=== PATIENT | female | born 1985 | race African-American/Black ===

== ENCOUNTER → 2016-04-02 | Outpatient (CLI) | payer BC ==
[~2016-04-02] MED LIST: ALEVE220 MG; APRI1 EACH PO; BACLOFEN20 MG PO; BUSPAR 5 MG TABL5 M1 PO; CARISOPRODOL 3350 MG PO; CYCLOBENZAPRINE10 MG PO; DEXTROAMP-AMPHE30 MG PO; FLEXERIL PO; HYDROCODON-ACE1 EACH PO; HYDROCODONE-AP1 EAC6 PO; NABUMETONE 500500 M1 PO; PRISTIQ100 MG PO; REMERON15 MG PO; ROBAXIN 750 MG750 M1 PO; SONATA5 M1 PO; TIZANIDINE HCL4 M1 PO; VYVANSE60 MG PO; XANAX XR1 MG PO
== END ==
LOC: MRI 02:08
DX: M54.12 Radiculopathy, cervical region (principal); M54.2 Cervicalgia

== ENCOUNTER → 2016-04-09 | Outpatient (CLI) | payer BC ==
[~2016-04-09] VITALS: Ht 160 cm; Wt 53.1 kg
--- NOTE | ~2016-04-09 | HPC ---
[facility] [place] [address] PAIN MANAGEMENT CONSULTATION Name: BIANCA PIERSON Room [facility]: [facility] [id number] Admission: 04/09/16 Attend Phys: Bud Cline DO Discharge: Date of : 81 Report #: [id number] THIS REPORT FOR: //name// CC: Bud HARTMAN DATE OF SERVICE: 04/09/2016 REFERRING PHYSICIAN: DEVAN Hadley. CHIEF COMPLAINT: Neck pain, upper back pain, bilateral upper extremity pain. HISTORY OF PRESENT ILLNESS: As you know, the patient is a 30-year-old female returning in followup visit today stating a pain score of 2/10. States her pain is aching, dull, radiating in sensation, exacerbated with moving her head, working at her computer at work, improves with medications and TENS units. She has returned today in followup visit for medication management and to review MRI of cervical spine. She denies no new injury, no new trauma that may have lead to progression of pain. ALLERGIES: No known drug allergies. CURRENT MEDICATIONS: Hydrocodone/acetaminophen 5/325 one tab every 8 hours p.r.n. for pain, carisoprodol 350 mg 3 times a day, dextroamphetamine/amphetamine 30 mg dose once a day, nabumetone 500 mg once a day, duloxetine 60 mg per day. SOCIAL HISTORY: The patient denies tobacco, IV or illicit drug use. Admits to one alcoholic beverage per week. She is employed, working, not receiving workmen's compensation, unaccompanied today. IMAGING: MRI of cervical spine obtained on 04/02/2016 shows essentially unremarkable MRI of the cervical spine except for mild posterior disk bulging at C5-C6, C6-C7. No significant central canal neural foraminal stenosis. PHYSICAL EXAMINATION: VITAL SIGNS: Blood pressure 138/85, pulse is 112, respiratory rate 14, unlabored. The patient is 100% on room air. Height 5 feet 3 inches tall, weight 117 pounds, BMI calculated 20.7. GENERAL: Well-developed, well-nourished, well-hydrated 30-year-old female appearing her stated age. Pain is rated around 2/10. HEENT: Normocephalic, atraumatic. Pupils equal, round, reactive to light. EXTREMITIES: Show no clubbing, no cyanosis, no edema. MUSCULOSKELETAL: Upper extremity strength equal and symmetrical 5/5, intact to light touch from C5-T1 dermatomes. Spurling's test is negative. [facility] [address] [address] PAIN MANAGEMENT CONSULTATION Name: BIANCA PIERSON Room #: REG [facility]#: [id number] Admission: 04/09/16 Attend Phys: Bud Cline DO Discharge: Date of : 81 Report #: [id number] test is mildly positive. There is restriction of motion of the cervical spine with rotation and lateral flexion and extension. ASSESSMENT: 1. Chronic neck pain. 2. Cervicalgia. 3. Myofascial pain. 4. Chronic intractable pain. PLAN: 1. The patient returns today in followup visit where we have taken 20 minutes of time to review the MRI of cervical spine and please do indicate to the patient today there is no major pathology that will require surgical options. She has minor changes at C5-C6, C6-C7, which I believe is contributing mildly to the patient's pain. The symptoms the patient is experiencing appears to be myofascial in origin. I believe this is due to the positioning of her work station and the position she has to remain in during her daily work activities. She has near complete resolution of pain when she is not at the work site and has had a weekend off or a vacation. This would indicate that positioning at work is the source of the patient's exacerbating symptoms. We have discussed with the patient options for treatment. From a medication standpoint, she wishes to continue therapy at our current dosing, but wishes to change the Soma back to cyclobenzaprine as she does find that the cyclobenzaprine was a better muscle relaxant for her. I have also discussed with the patient our desire to have the patient have ergonomic jewelry designer to look at her work space and adjust her devices appropriately. She indicates she is working with her human relations manager to do this at her current job. 2. The patient will discontinue Soma in place will be using cyclobenzaprine. She was given 10 mg dose 1 tab p.o. t.i.d., #90, 2 refills. The patient was advised to utilize the medication only when pain is due to muscle spasming, not to rely on the medication prophylactically. 3. The patient was provided a prescription of nabumetone 500 mg dose 1 tab p.o. t.i.d., #90, 2 refills. She is to take this medication with meals to decrease dyspepsia. 4. The patient will be continued on hydrocodone/acetaminophen 5/325 one tab p.o. q. 8 hours p.r.n. for pain. She was given #90 releases of today, 4 weeks from today, 8 weeks from today. Advised to take the medication when pain is intolerable, not to rely on the medication prophylactically. 5. We will see the patient back in followup visit in 3 months or earlier if changes need to be made and medication management. <ELECTRONICALLY SIGNED> By: Bud Cline DO 04/22/16 0805 0840 2320 Bud Cline DO /nt
[2016-04-09 13:48] VITALS: BP 138/85
== END | disposition home or self-care (01) ==
LOC: PAIN 04-03 07:07
DX: M54.2 Cervicalgia (principal); M79.1 Myalgia; G89.29 Other chronic pain; Z87.891 Personal history of nicotine dependence

== ENCOUNTER → 2016-07-23 | Outpatient (CLI) | payer BC ==
[~2016-07-23] VITALS: Ht 160 cm; Wt 58.9 kg
--- NOTE | ~2016-07-23 | HPC ---
[facility] [place] [address] PAIN MANAGEMENT CONSULTATION Name: BIANCA PIERSON Room #: REG [facility] M.R.#: [id number] Admission: 07/23/16 Attend Phys: Bud Cline DO Discharge: Date of : 81 Report #: [id number] THIS REPORT FOR: //name// CC: Bud HARTMAN DATE OF SERVICE: 07/23/2016 REFERRING PHYSICIAN: DEVAN Hadley CHIEF COMPLAINT: Neck pain, upper back pain, bilateral upper extremity pain. HISTORY OF PRESENT ILLNESS: As you know, the patient is a very pleasant 30-year-old female who returns today in followup visit for medication management. The patient indicates when pain is present; it involves her head, neck, shoulders and upper back. It is chronic in nature, aching, dull, radiating in sensation, exacerbated with movement of the cervical spine, working on computer monitors and medications, TENS units, rest and relaxation appears to improve pain. She returns today in followup visit reporting today pain score of 0/10. Apparently, she has been working in a different facility of late. Her symptoms have improved. Plan is to return to her normal work space starting today. She has returned requesting refill on medications, denying any side effects with their use. ALLERGIES: No known drug allergies. CURRENT MEDICATIONS: Hydrocodone/acetaminophen 5/325 one tab p.o. q. 8 hours p.r.n. for pain, Flexeril 10 mg 3 times a day, dextroamphetamine/amphetamine ER 30 mg once a day, Vyvanse 60 mg once a day. SOCIAL HISTORY: The patient denies tobacco, IV or illicit drug use. Admits to one alcoholic beverage per week. She is employed. She is working, not receiving workmen's compensation. She is unaccompanied today. IMAGING: No new imaging available. PHYSICAL EXAMINATION: VITAL SIGNS: Blood pressure 141/93, pulse 119, respiratory rate 14, unlabored. The patient is 98% on room air, height 5 feet 3 inches tall, weight 129.8 pounds, BMI calculated 23. GENERAL: Well-developed, well-nourished, well-hydrated 30-year-old female appearing stated age. Pain is rated at 0/10. HEENT: Normocephalic, atraumatic. Pupils equal, round, reactive to light. EXTREMITIES: Show no clubbing, no cyanosis, no edema. MUSCULOSKELETAL: There is palpatory tenderness over the paraspinal musculature [facility] [address] [place] [address] PAIN MANAGEMENT CONSULTATION Name: BIANCA PIERSON Room #: REG [facility]#: [id number] Admission: 07/23/16 Attend Phys: Bud Cline DO Discharge: Date of : 81 Report #: [id number] cervical spine, no spinous process tenderness. Spurling's test is negative. Distraction test is mildly positive. There is no restriction of motion in the cervical region today including rotation, lateral flexion and extension. ASSESSMENT: 1. Chronic neck pain. 2. Cervicalgia. 3. Myofascial pain. 4. Mild cervical facet arthropathy. 5. Chronic intractable pain. PLAN: 1. The patient has returned today in followup visit for medication management. The patient indicates medications are working beneficially. She does not have any side effects to the medications such as somnolence, decrease in mental acuity, disorientation or confusion. At present, the patient's pain level is 0/10. Apparently, she has been working at a different facility and the positioning of the computer screens and workspace is such that she has had near complete resolution of symptoms. She does return today requesting refills on medication as she is going to be returning to her previous work environment and she is concerned, the pain will begin again with positioning. We are hopeful that her work organization has made changes to her work space, but have agreed to provide medications for pain control at this time. I would recommend the patient utilize the lowest most effective dose for treatment. 2. The patient was provided a prescription of hydrocodone 5/325 one tab every 8 hours p.r.n. for pain, #90 releases of today, 4 weeks from today, 8 weeks from today, 3 months' worth of medication. 3. The patient was provided a prescription of cyclobenzaprine 10 mg dose 1 tab p.o. t.i.d., #90, releases of today, 4 weeks from today, 8 weeks from today. 4. The patient to return to our clinic on an as needed basis for possible interventional treatments and medication management changes. By: [id number] Bud Cline DO /nt
[2016-07-23 12:43] VITALS: BP 141/93
== END ==
LOC: PAIN 06:45
DX: G89.29 Other chronic pain (principal); M12.88 Other specific arthropathies, not elsewhere classified, other specified site

== ENCOUNTER → 2016-10-22 | Outpatient (CLI) | payer BC ==
[~2016-10-22] VITALS: Ht 160 cm; Wt 62.1 kg
[~2016-10-22] MED LIST changes: +ZOLOFT50 MG PO
--- NOTE | ~2016-10-22 | HPC ---
[facility] [address] [place] [address] PAIN MANAGEMENT CONSULTATION Name: KENNABIANCA Up [facility] [id number] Admission: 10/22/16 Attend Phys: Bud Cline DO Discharge: Date of : 81 Report #: [id number] THIS REPORT FOR: //name// CC: Bud HARTMAN DATE OF SERVICE: 10/22/2016 REFERRING PHYSICIAN: DEVAN Hadley. CHIEF COMPLAINT: Neck pain, upper back pain and bilateral upper extremity pain. HISTORY OF PRESENT ILLNESS: As you know, the patient is a very pleasant 30-year-old female who returns today in followup visit stating that her pain is now a level 4/10. States her pain is beginning in the neck, radiating towards the head, into the shoulders and down the arms. Indicates pain is chronic in nature, irritating, radiating, numbness and tingling when describing pain. She indicates that moving her head, monitoring her computer monitors tend to exacerbate symptoms. TENS units, medications and previous cervical epidural injections have assisted in pain control. She returns today in followup visit requesting to undergo a cervical epidural injection under fluoroscopic guidance and to receive refill of medications at her current dosing. She is denying side effects to medication at this time and does find benefit with their use. ALLERGIES: No known drug allergies. CURRENT MEDICATIONS: Hydrocodone/acetaminophen 5/325 one tab p.o. q. 8 hours p.r.n. for pain, Flexeril 10 mg 3 times a day, dextroamphetamine/amphetamine ER 30 mg once a day and Vyvanse 60 mg per day. SOCIAL HISTORY: The patient denies tobacco, IV or illicit drug use. Admits to one alcoholic beverage per week. She is employed. She is working, not receiving workmen's compensation, unaccompanied today. IMAGING: No new imaging available. PHYSICAL EXAMINATION: VITAL SIGNS: Blood pressure 128/91, pulse 92, respiratory rate 14, unlabored. The patient is 100% on room air, height 5 feet 3 inches tall, weight 136.8 pounds, BMI calculated at 24.2. GENERAL: Well-developed, well-nourished and well hydrated 30-year-old female appearing her stated age, placing pain score today at 4/10. HEENT: Normocephalic, atraumatic. Pupils equal, round and reactive to light. Extraocular muscles are intact. Sclerae nonicteric, without injection. EXTREMITIES: Show no clubbing, no cyanosis, [place] [address] PAIN MANAGEMENT CONSULTATION Name: BIANCA PIERSON Room #: REG [facility]#: [id number] Admission: 10/22/16 Attend Phys: Bud Cline DO Discharge: Date of : 81 Report #: [id number] MUSCULOSKELETAL: There is palpatory tenderness over the paraspinal musculature of cervical spine. No spinous process tenderness. Upper extremity strength appears equal and symmetrical 5/5. Muscle bulk and tone equal and symmetrical in the upper extremities. Spurling's test is mildly positive. Distraction test is positive. Restriction of motion to the cervical region is noted with rotation, lateral flexion and extension, mainly rightward versus leftward. ASSESSMENT: 1. Cervical radiculopathy. 2. Chronic neck pain. 3. Cervicalgia. 4. Myofascial pain. 5. Mild cervical facet arthropathy. 6. Chronic intractable pain. PLAN: 1. The patient returns today in followup visit indicating that escalating work hours and days at work has exacerbated her neck pain. She complains mainly of pain generated from the positions of her monitors at work. We have attempted to have changes made at her workstation, but have seen no attempts at having ergonomic design changes at her workplace. This is unfortunate as I believe that it would certainly assist in alleviating a good portion of the patient's myofascial neck pain. She does return today requesting a cervical epidural injection as she is beginning to experience cervical radicular symptoms radiating into the upper extremities and upper back. She has done very well with previous epidural injection. She is hopeful to see similar improvement today. She is also requesting refill of medications. 2. The patient was advised of risks and benefits of a cervical epidural injection. These risks include but are not necessarily limited to bleeding, bruising, infection, worsening pain, no relief of pain, also risk of temporary or permanent muscle weakness, temporary or permanent nerve damage, post-dural puncture headache and . The patient states understood and wished to proceed. 3. The patient was provided a prescription of hydrocodone 5/325 one tab every 8 hours p.r.n. for pain. I have given the patient #90, releases of today, 4 weeks from today and 8 weeks from today. The patient is to take this medication only when pain is intolerable, not to rely on the medication prophylactically. 4. The patient was provided a prescription of Flexeril 10 mg dose 1 tab p.o. t.i.d. Given the patient #92 refills, 3 months' worth of medication. 5. The patient was provided a release of work for today, Friday, Friday and , to return to work on the . This is to allow the patient to recover after our epidural injection today. PROCEDURE NOTE PROCEDURE: C7-T1 cervical epidural steroid injection under fluoroscopic [facility] [address] [place] [address] PAIN MANAGEMENT CONSULTATION Name: BIANCA PIERSON Annel Room #: REG [facility]#: [id number] Admission: 10/22/16 Attend Phys: Bud Cline DO Discharge: Date of : 83 Report #: [id number] guidance. DESCRIPTION OF PROCEDURE: After obtaining written consent, the patient was taken back to fluoroscopy suite and placed in prone position with pillow under chest and forehead to decrease cervical lordosis. Skin overlying cervical area was prepped and draped in an aseptic fashion. C7-T1 cervical interspace identified by AP fluoroscopy. Skin and subcutaneous tissue overlying target site of injection was anesthetized with 3 mL of 1% lidocaine. A 20-gauge 3-1/2 inch Tuohy needle advanced under fluoroscopic guidance towards the epidural space using a midline approach. Epidural space was identified using loss of resistance to air technique. After negative aspiration for heme or cerebrospinal fluid, 1 mL of Omnipaque was injected. A cervical epidurogram was confirmed using both AP and oblique fluoroscopy. After negative aspiration for heme or cerebrospinal fluid, 5 mL of a solution containing 2 mL 40 mg per mL, 80 mg total triamcinolone, 3 mL lidocaine 1% injected slowly. Needle retracted prison, needle tract flushed 3 mL of 1% lidocaine. Needle then removed. Sterile bandage placed over the injection site. No new motor deficits present in the upper extremity following the procedure. The patient tolerated procedure well, carefully escorted to recovery room in stable condition. No apparent complications. After meeting our discharge criteria, the patient discharged home. <ELECTRONICALLY SIGNED> By: Bud Cline DO 10/23/16 0833 [id number] [id number] Bud Cline DO /nt
[2016-10-22 11:16] VITALS: BP 128/91
== END | disposition home or self-care (01) ==
LOC: PAIN 10-09 07:28
DX: M54.12 Radiculopathy, cervical region (principal); M54.2 Cervicalgia; M79.1 Myalgia; G89.29 Other chronic pain; M12.88 Other specific arthropathies, not elsewhere classified, other specified site; Z87.891 Personal history of nicotine dependence

== ENCOUNTER → 2017-03-25 | Outpatient (CLI) | payer BC ==
[~2017-03-25] VITALS: Ht 160 cm; Wt 63.1 kg
--- NOTE | ~2017-03-25 | HPC ---
[facility] [place] [address] PAIN MANAGEMENT CONSULTATION Name: BIANCA PIERSON Room #: REG [facility].#: [id number] Admission: 03/25/17 Attend Phys: Bud Cline DO Discharge: Date of : 81 Report #: [id number] THIS REPORT FOR: //name// CC: Bud HARTMAN DATE OF SERVICE: 03/25/2017 REFERRING PHYSICIAN: DEVAN Hadley CHIEF COMPLAINT: Neck pain, upper back pain, bilateral upper extremity pain. HISTORY OF PRESENT ILLNESS: As you know, the patient is a 31-year-old female who returns today in followup visit requesting to undergo a cervical epidural injection and also receive refill of medications. The patient denies injury or trauma that may have led to symptoms. She does indicate her pain is intensified with positioning at work and this ultimately leads to her ongoing pain issues. She returns today requesting to undergo a cervical epidural injection to address cervical radicular symptoms recurrent over the past couple of weeks. She denies injury or trauma specifically that has led to her ongoing symptoms. ALLERGIES: No known drug allergies. CURRENT MEDICATIONS: Hydrocodone, Flexeril, dextromethorphan/amphetamine ER, and Vyvanse. SOCIAL HISTORY: The patient denies tobacco, IV or illicit drug use, admits to one alcoholic beverage per week. She is employed, not receiving workmen's compensation, unaccompanied today. IMAGING: No new imaging available. PHYSICAL EXAMINATION: VITAL SIGNS: Blood pressure 131/74, pulse 92, respiratory rate 14 and unlabored, the patient is 98% on room air, height 5 feet 3 inches tall, weight 139.2 pounds, and BMI calculated 24.7. GENERAL: Well-developed, well-nourished, well-hydrated 31-year-old female, appearing stated age, placing current pain score 5/10. HEENT: Normocephalic, atraumatic. Pupils are equal, round, and reactive to light. Extraocular muscles are intact. Speech is fluent. EXTREMITIES: Show no clubbing, no cyanosis, and no edema. MUSCULOSKELETAL: There is palpatory tenderness over the paraspinal musculature of the cervical spine. Cervical provocation testing does increase axial neck pain. Spurling's test is equivocal. Muscle bulk and tone equal and symmetrical in upper extremities. [address] [address] PAIN MANAGEMENT CONSULTATION Name: KENNABIANCA S Room #: REG [facility]#: [id number] Admission: 03/25/17 Attend Phys: Bud Cline DO Discharge: Date of : 81 Report #: [id number] ASSESSMENT: 1. Cervical radiculopathy. 2. Chronic neck pain. 3. Cervicalgia. 4. Myofascial pain. 5. Mild cervical facet arthropathy. 6. Chronic intractable pain. PLAN: 1. The patient returns today in followup visit requesting to undergo cervical epidural injection under fluoroscopic guidance. She has noted good benefit with previous cervical epidural injection, she has been advised the risks and benefits of the procedure, states she understood and wished to proceed. 2. The patient was provided a refill prescription of [place] 5/325 one tab every 8 hours p.r.n. for pain, #90, release dates of today, 4 weeks from today, 8 weeks from today, 3 months' worth of medication. The patient was advised to watch for the side effects of somnolence, decreased mental acuity, disorientation, confusion, mental slowing, and constipation, she denies any of these at this time, but she is to monitor. 3. The patient was provided a prescription of Flexeril 10 mg dose 1 tab p.o. t.i.d., #90 with 2 refills. 4. We will see the patient back in followup visit on an as needed basis for next in a series of cervical epidural injections. Otherwise, we will see her back in 3 months for medication therapy. PROCEDURE NOTE DESCRIPTION OF PROCEDURE: C7-T1 cervical epidural steroid injection under fluoroscopic guidance. After obtaining written consent, the patient was taken back to fluoroscopy suite, placed in prone position with a pillow under chest and forehead to decrease cervical lordosis. Skin overlying the cervical area prepped and draped in aseptic fashion. C7-T1 cervical interspace identified by AP fluoroscopy. Skin and subcutaneous tissue overlying target site of injection was anesthetized with 3 mL of 1% lidocaine. A 20-gauge 3-1/2-inch Tuohy needle advanced under fluoroscopic guidance towards the epidural space using a midline approach. Epidural space identified using loss of resistance to air technique. After negative aspiration for heme or cerebrospinal fluid, 1 mL of Omnipaque was injected. A cervical epidurogram was confirmed using both AP and oblique fluoroscopy. After negative aspiration for heme or cerebrospinal fluid, 5 mL of a solution containing 2 mL 40 mg per mL, 80 mg total triamcinolone, 3 mL lidocaine 1% injected slowly. Needle retracted care home, flushed with 1 mL of 1% lidocaine and removed. Sterile bandage placed [address] [address] PAIN MANAGEMENT CONSULTATION Name: BIANCA PIERSON Room #: REG [facility]#: [id number] Admission: 03/25/17 Attend Phys: Bud Cline DO Discharge: Date of : 81 Report #: [id number] over injection site. No new motor deficits present in the upper extremity following procedure. The patient tolerated the procedure well, carefully escorted to the recovery room in stable condition. No apparent complications. After meeting discharge criteria, the patient discharged home. <ELECTRONICALLY SIGNED> By: Bud Cline DO 04/08/1706 0821 0932 Bud Cline DO /nt
[2017-03-25 11:14] VITALS: BP 131/74
== END | disposition home or self-care (01) ==
LOC: PAIN 06:50
DX: M54.12 Radiculopathy, cervical region (principal); G89.29 Other chronic pain; M79.1 Myalgia; M46.92 Unspecified inflammatory spondylopathy, cervical region; Z79.891 Long term (current) use of opiate analgesic; Z87.891 Personal history of nicotine dependence

== ENCOUNTER → 2017-07-22 | Outpatient (CLI) | payer BC ==
[~2017-07-22] VITALS: Ht 160 cm; Wt 63.3 kg
--- NOTE | ~2017-07-22 | HPC ---
[facility] [address] [place] [address] PAIN MANAGEMENT CONSULTATION Name: BIANCA PIERSON Room #: REG [facility].#: [id number] Admission: 07/22/17 Attend Phys: Bud Cline DO Discharge: Date of : 81 Report #: [id number] THIS REPORT FOR: //name// CC: Bud HARTMAN DATE OF SERVICE: 07/22/2017 REFERRING PHYSICIAN: DEVAN Hadley. CHIEF COMPLAINT: Neck pain, upper back pain and bilateral upper extremity pain. HISTORY OF PRESENT ILLNESS: As you know, the patient is a very pleasant 31-year-old female who returns today in followup visit for medication management. She indicates medications are working beneficially for pain control. Unfortunately, the patient is relying on these medications consistently due to ongoing pain issue secondary to neck pain and bilateral upper extremity pain. She indicates that her work conditions exacerbate her symptoms leading to the chronic nature of her symptoms. She indicates pain is improved with moving her head and computer monitors as well as warm weather and variable activities and TENS units and Biofreeze also tend to improve pain. The patient's pain begins in the neck area, radiates towards the head and into the shoulders and upper back. She has suffered no new injury and trauma. She returns today requesting refill on medications. ALLERGIES: No known drug allergies. CURRENT MEDICATIONS: Hydrocodone, Flexeril, dextromethorphan, amphetamine ER and Vyvanse. SOCIAL HISTORY: The patient denies tobacco, IV or illicit drug use. Admits to one alcoholic beverage per week. She is employed, not receiving workmen's compensation, unaccompanied today. IMAGING DATA: No new imaging available. PHYSICAL EXAMINATION: VITAL SIGNS: Blood pressure 114/77, pulse 94 and respiratory rate 14 and unlabored. The patient is 100% on room air. Height 5 feet 3 inches tall, weight 139.6 pounds and BMI calculated 24.7. GENERAL: Well-developed, well-nourished, well-hydrated 31-year-old female appearing her stated age. She is placing current pain score at no greater than 3/10. HEENT: Normocephalic and atraumatic. Pupils equal, round and reactive to light. Extraocular muscles are intact. Sclerae nonicteric without injection. [address] [address] PAIN MANAGEMENT CONSULTATION Name: BIANCA PIERSON Room #: REG [facility]#: [id number] Admission: 07/22/17 Attend Phys: Bud Cline DO Discharge: Date of : 81 Report #: [id number] NEUROLOGICAL: Cranial nerves 2 through 12 grossly intact. Speech is fluent. The patient deemed an excellent historian. LUNGS: Clear. No wheeze, rhonchi or rales. CARDIOVASCULAR: Regular. No appreciable gallop and no rub. ABDOMEN: Soft and mildly obese. Normoactive bowel sounds. EXTREMITIES: Show no clubbing, no cyanosis and no edema. MUSCULOSKELETAL: Upper extremity strength appears equal and symmetrical 5/5, muscle bulk and tone equal and symmetrical. There is some palpatory tenderness over the paraspinal musculature, cervical region. No cervical spinous process tenderness. Cervical provocation testing is met with increasing axial back pain. Spurling's test is equivocal. ASSESSMENT: 1. Cervical radiculopathy. 2. Chronic neck pain. 3. Cervicalgia. 4. Myofascial pain. 5. Chronic intractable pain. PLAN: 1. The patient returns today in followup visit for medication management. She feels medications in conjunction with intermittent epidural injections in the cervical region do provide good benefit. She states this along with changing positions at work adjusting her monitors to a more ergonomic positioning tends to improve the pain as well. She returns requesting refill on medications as she wishes to continue therapy. She is denying any side effects with the current treatments provided from a medication standpoint. 2. The patient was provided prescription of [place] 5/325 one tab every 8 hours p.r.n. for pain, I have given the patient #90, releases of today, 4 weeks from today, 8 weeks from today, 3 months' worth of medication. The patient was advised to safeguard medication. We have discussed with her the concerns we have about ongoing opioid medication management. She has not shown any aberrancy nor is she required early refills or adjustments in therapy. She appears to be utilizing the medication well. 3. The patient was provided a prescription of Flexeril 10 mg dose 1 tab p.o. t.i.d., #90, two refills. The patient was advised not to drive or operate heavy equipment while on this medication as it can lead to somnolence, decreased mental acuity, disorientation and confusion. She is denying any side effects at this time, we do caution her in regards to the medication. 4. We will see the patient back in followup visit on an as needed basis for possible interventional treatments, which can be done at any time. Otherwise, we will see the patient back in followup visit in 3 months. By: [id number] Bud Cline DO /nt
[2017-07-22 13:19] VITALS: BP 114/77
== END ==
LOC: PAIN 06:11
DX: M54.12 Radiculopathy, cervical region (principal); G89.29 Other chronic pain; M79.1 Myalgia

== ENCOUNTER → 2017-07-30 | Outpatient (CLI) | payer BC ==
[~2017-07-30] VITALS: Ht 160 cm; Wt 62.7 kg
--- NOTE | ~2017-07-30 | HPC ---
[facility] [place] [address] PAIN MANAGEMENT CONSULTATION Name: BIANCA PIERSON Room #: REG [facility].#: [id number] Admission: 07/30/17 Attend Phys: Bud Cline DO Discharge: Date of : 81 Report #: [id number] THIS REPORT FOR: //name// CC: Bud HARTMAN DATE OF SERVICE: 07/30/2017 REFERRING PERSON: DEVAN Hadley CHIEF COMPLAINT: Neck pain, upper back pain, bilateral upper extremity pain. HISTORY OF PRESENT ILLNESS: As you know, the patient is a very pleasant 31-year-old female who returns today in followup visit, requesting to undergo cervical epidural injection under fluoroscopic guidance to address her 3/10 pain. She indicates no new injury, no new trauma that may have led to symptom development. She indicates pain is exacerbated with activities at work due to positioning of her computer monitors. She has sought assistance to have these monitors moved to a more ergonomic positioning, but has yet to have this accommodated. She returns today, requesting next in a series of cervical epidural injections. ALLERGIES: No known drug allergies. CURRENT MEDICATIONS: Hydrocodone, Flexeril, dextromethorphan, amphetamine ER and Vyvanse. SOCIAL HISTORY: The patient denies tobacco, IV or illicit drug use. Admits to one alcoholic beverage per week. She is employed, working, not receiving workmen's compensation, unaccompanied today. IMAGING: No new imaging available. PHYSICAL EXAMINATION: VITAL SIGNS: Blood pressure 114/77, pulse 94, respiratory rate 14 and unlabored. The patient is 100% on room air. Height 5 feet 3 inch tall, weight 139.6 pounds, BMI calculated 24.7. GENERAL: Well-developed, well-nourished, well-hydrated 31-year-old female appearing stated age, placing current pain score 3/10. HEENT: Normocephalic, atraumatic. Pupils equal, round, reactive to light. EXTREMITIES: Show no clubbing, no cyanosis, no edema. MUSCULOSKELETAL: Upper extremity strength appears equal and symmetrical 5/5, muscle bulk and tone equal and symmetrical. Cervical provocation testing is met with increasing axial cervical pain. Spurling's test remains equivocal. She is intact to light touch from C5-T1 dermatomes. [address] [address] PAIN MANAGEMENT CONSULTATION Name: BIANCA PIERSON Room #: REG [facility]#: [id number] Admission: 07/30/17 Attend Phys: Bud Cline DO Discharge: Date of : 81 Report #: [id number] ASSESSMENT: 1. Cervical radiculopathy. 2. Chronic neck pain. 3. Cervicalgia. 4. Myofascial pain. 5. Chronic intractable pain. PLAN: 1. The patient returns today in followup visit, requesting to undergo cervical epidural injection under fluoroscopic guidance. The patient had noted excellent benefit with these epidural injections in the past and hopeful to see similar improvement today. She has been advised risks and benefits of the procedure, states understood and wished to proceed. 2. No medication changes made at today's visit. The patient will continue current medical therapy as previously prescribed. 3. We will see the patient back in followup visit on an as-needed basis for possible next in a series of cervical epidural injections. Otherwise, we will see her back in 3 months for medication management. PROCEDURE NOTE DESCRIPTION OF PROCEDURE: C7-T1 cervical epidural steroid injection under fluoroscopic guidance. After obtaining written consent, the patient was taken back to fluoroscopy suite, placed in prone position with pillow under chest and forehead to decrease cervical lordosis. Skin overlying the cervical area then prepped and draped in aseptic fashion. The C7-T1 vertebral interspace was identified by AP fluoroscopy. Skin and subcutaneous tissue overlying target site of injection was anesthetized with 3 mL of 1% lidocaine. A 20-gauge 3-1/2 inch Tuohy needle advanced under fluoroscopic guidance towards the epidural space using a midline approach. Epidural space identified using loss of resistance to air technique. After negative aspiration for heme or cerebrospinal fluid, 1 mL of Omnipaque was injected. A cervical epidurogram was confirmed using both AP and lateral fluoroscopy. After negative aspiration for heme or cerebrospinal fluid, 5 mL of a solution containing 2 mL 40 mg per mL, 80 mg total triamcinolone, 3 mL lidocaine 1% injected slowly. Needle retracted long-term, flushed with 1 mL of 1% lidocaine and removed. Sterile bandage placed over injection site. No new motor deficits present in the upper extremity following procedure. The patient tolerated procedure well, carefully escorted to recovery room in [address] [address] PAIN MANAGEMENT CONSULTATION Name: BIANCA PIERSON Room #: REG [facility] Michael#: [id number] Admission: 07/30/17 Attend Phys: Bud Cline DO Discharge: Date of : 81 Report #: [id number] stable condition. No apparent complications. After meeting discharge criteria, the patient discharged home. <ELECTRONICALLY SIGNED> By: Bud Cline DO 08/06/17 [id number] Bud Cline DO /nt
[2017-07-30 11:51] VITALS: BP 118/80
== END | disposition home or self-care (01) ==
LOC: PAIN 06:21
DX: M54.12 Radiculopathy, cervical region (principal); G89.29 Other chronic pain; M79.1 Myalgia; Z79.891 Long term (current) use of opiate analgesic; Z87.891 Personal history of nicotine dependence

== ENCOUNTER → 2017-10-21 | Outpatient (CLI) | payer BC ==
[~2017-10-21] VITALS: Ht 162.6 cm; Wt 63.4 kg
--- NOTE | ~2017-10-21 | HPC ---
[facility] [address] [place] [address] PAIN MANAGEMENT CONSULTATION Name: KENNA,BIANCA S Room #: REG [facility] M..#: [id number] Admission: 10/21/17 Attend Phys: Bud Cline DO Discharge: Date of : 81 Report #: [id number] THIS REPORT FOR: //name// CC: Bud Garcia Loly Jose HARTMAN DATE OF SERVICE: 10/21/2017 CHIEF COMPLAINT: Neck pain, upper back pain, bilateral upper extremity pain. HISTORY OF PRESENT ILLNESS: As you know, the patient is a very pleasant 31-year-old female who returns today in followup visit for medication management. She is placing pain score at 2/10. She states she has pain involving the lower portion of the head, the entire neck, and bilateral shoulders. She indicates her pain is chronic in nature, dull and radiating in sensation. Her pain is exacerbated with cervical extension, utilizing her computer monitors, weather changes and activity; improves with medications, TENS units, Biofreeze and previous cervical epidural injections. She returns today in followup visit requesting refill on medications at this time. She is placing her current pain score 2/10, she denies new injury, new trauma or any changes in medical history since our last visit. She denies any side effects to medication at this time. ALLERGIES: No known drug allergies. CURRENT MEDICATIONS: Vyvanse 60 mg once a day, cyclobenzaprine 10 mg 3 times a day p.r.n., hydrocodone/acetaminophen 5/325 one tab every 6 hours p.r.n. for pain. SOCIAL HISTORY: The patient denies tobacco, IV or illicit drug use, admits to one alcoholic beverage per week. She is employed. She is working, not receiving workmen's compensation. She is accompanied by her significant other today. IMAGING: No new imaging available. PHYSICAL EXAMINATION: VITAL SIGNS: Blood pressure 139/88, pulse is 117, respiratory rate 14 and unlabored, the patient is 100% on room air, height 5 feet 4 inches tall, weight 139.8 pounds, and BMI calculated 24. GENERAL: Well-developed, well-nourished, well-hydrated 31-year-old female, appearing her stated age, placing current pain score at no greater than 2/10. HEENT: Normocephalic, atraumatic. Pupils are equal, round, and reactive to light. EXTREMITIES: Show no clubbing, no cyanosis, and no edema. [facility] [address] [place] [address] PAIN MANAGEMENT CONSULTATION Name: BIANCA PIERSON Room #: REG [facility]#: [id number] Admission: 10/21/17 Attend Phys: Bud Cline DO Discharge: Date of : 81 Report #: [id number] MUSCULOSKELETAL: Upper extremity strength is equal and symmetrical 5/5, muscle bulk and tone equal and symmetrical in the upper extremities and upper back. Cervical provocation testing is met only with axial pain, increased with extension and lateral flexion, rotation appears to be normal. Spurling's test is equivocal. She remains intact to light touch from C5-T1 dermatomes. Deep tendon reflexes are symmetrical at biceps, brachioradialis, and triceps. ASSESSMENT: 1. Cervical radiculopathy. 2. Chronic neck pain. 3. Cervicalgia. 4. Myofascial pain. 5. Chronic intractable pain. PLAN: 1. The patient returns today in followup visit requesting refill on medications. She feels medications are working beneficially for pain control. She states the medications along with stretching exercises, rest and relaxation is what has allowed the patient to continue to work at her current position. She very much enjoys her job, but is having difficulty with positioning during the work hours due to the lack of ergonomics in her desk. She indicates that when she is at home and doing normal activities, her pain is nearly resolved. Medications are working beneficially, she is having no side effects to therapy and they do allow increased function. 2. The patient was provided a prescription of Flexeril 10 mg dose 1 tab p.o. t.i.d., I have given the patient #90 tablets, 2 refills, 3 months' worth of medication. 3. The patient was provided a prescription of hydrocodone 5/325 one tab every 6 hours p.r.n. for pain, I have given the patient #90 tablets, release dates of today, 4 weeks from today, 8 weeks from today, 3 months' worth of medication. Total MME equivalents is 15 mg well below the CDC's recommended 90 morphine equivalents per day. 4. We will see the patient back in followup visit on an as needed basis for possible cervical epidural injection. Otherwise, we will see her back in 3 months for medication management. By: [id number] Bud Cline DO /nt
[2017-10-21 14:39] VITALS: BP 139/88
== END ==
LOC: PAIN 07:09
DX: M54.12 Radiculopathy, cervical region (principal); M79.1 Myalgia; G89.4 Chronic pain syndrome; Z79.899 Other long term (current) drug therapy

== ENCOUNTER → 2017-11-05 | Outpatient (CLI) | payer BC ==
[~2017-11-05] VITALS: Ht 162.6 cm; Wt 64.7 kg
--- NOTE | ~2017-11-05 | HPC ---
[facility] [place] [address] PAIN MANAGEMENT CONSULTATION Name: BIANCA PIERSON Room #: REG [facility].#: [id number] Admission: 11/05/17 Attend Phys: Bud Cline DO Discharge: Date of : 81 Report #: [id number] THIS REPORT FOR: //name// CC: Bud HARTMAN DATE OF SERVICE: 11/05/2017 REFERRING PHYSICIAN: DEVAN Hadley. CHIEF COMPLAINT: Neck pain, upper back pain and bilateral upper extremity pain. HISTORY OF PRESENT ILLNESS: As you know, the patient is a very pleasant 31-year-old female who returns today in followup visit requesting to undergo cervical epidural injection under fluoroscopic guidance. As you are aware, the patient receives excellent benefit with cervical epidural injections; most recent provided 80% improvement in pain, lasting for greater than 2 months. She returns to undergo this injection in hopes of improving pain further. She denies any trauma or changes in medical history since our last visit. ALLERGIES: No known drug allergies. CURRENT MEDICATIONS: Vyvanse 60 mg once a day, hydrocodone 5/325 one tab p.o. q. 8 hours p.r.n. for pain and cyclobenzaprine 10 mg every 8 hours. SOCIAL HISTORY: The patient denies tobacco, IV or illicit drug use. Admits to an occasional alcoholic beverage. She is employed, working, not receiving workmen's compensation, unaccompanied today. IMAGING: No new imaging available. PHYSICAL EXAMINATION: VITAL SIGNS: Blood pressure 119/74, pulse 118, respiratory rate 14 and unlabored. The patient is 100% on room air. Height 5 feet 4 inches tall, weight 142.6 pounds and BMI calculated at 24.5. GENERAL: Well-developed, well-nourished and well-hydrated 31-year-old female, appears her stated age. She is placing current pain score at 4/10. HEENT: Normocephalic, atraumatic. Pupils equal, round and reactive to light. Extraocular muscles are intact. Sclerae nonicteric, without injection. EXTREMITIES: Show no clubbing, no cyanosis, no edema. MUSCULOSKELETAL: Upper extremity strength appears equal and symmetrical, 5/5. Intact to light touch from C5-T1 dermatomes. Cervical provocation testing is met with axial back pain, increased mainly with extension and lateral flexion. Spurling's test is equivocal. [address] [address] PAIN MANAGEMENT CONSULTATION Name: KENNABIANCA Annel Room #: REG [facility]#: [id number] Admission: 11/05/17 Attend Phys: Bud Cline DO Discharge: Date of : 81 Report #: [id number] ASSESSMENT: 1. Cervical radiculopathy. 2. Chronic neck pain. 3. Cervicalgia. 4. Myofascial pain. 5. Chronic intractable pain. PLAN: 1. The patient has returned today in followup visit requesting to undergo cervical epidural injection under fluoroscopic guidance. As you are aware, the patient has received excellent benefit with cervical epidural injections, most recent gave 80% improvement in overall pain, lasting for greater than 2 months. She returns today in followup visit to undergo this procedure. She has been advised of the risks and benefits, states understood and wished to proceed. 2. No medication changes made at today's visit. The patient will continue current medical therapy as previously prescribed. 3. We will see the patient back in followup visit on an as needed basis for the next in the series of cervical epidural injections. Otherwise, we will see her back in followup visit for medication management. PROCEDURE NOTE PROCEDURE: C7-T1 cervical epidural steroid injection under fluoroscopic guidance. DESCRIPTION OF PROCEDURE: After obtaining written consent, the patient was taken back to fluoroscopy suite, placed in a prone position with separate pillows under chest and forehead to decrease cervical lordosis. Skin overlying the cervical area then prepped and draped in aseptic fashion. C7-T1 cervical interspace identified by AP fluoroscopy. Skin and subcutaneous tissue overlying target site of injection was anesthetized with 3 mL of 1% lidocaine. A 20-gauge 3-1/2-inch Tuohy needle advanced under fluoroscopic guidance towards the epidural space using a midline approach. Epidural space identified using loss of resistance to air technique. After negative aspiration for heme or cerebrospinal fluid, 1 mL of Omnipaque was injected. A cervical epidurogram was confirmed using both AP and oblique fluoroscopy. After negative aspiration for heme or cerebrospinal fluid, 5 mL of a solution containing 2 mL 40 mg per mL, 80 mg total triamcinolone, 3 mL of lidocaine 1% injected slowly. Needle retracted fpc, flushed with 1 mL of 1% lidocaine and removed. Sterile bandage placed over injection site. There were no new motor deficits in the upper extremity following procedure. The patient tolerated the procedure well, carefully escorted to the recovery [facility] [address] [place] [address] PAIN MANAGEMENT CONSULTATION Name: BIANCA PIERSON Room #: REG [facility]#: [id number] Admission: 11/05/17 Attend Phys: Bud Cline DO Discharge: Date of : 81 Report #: [id number] room in stable condition. No apparent complications. After meeting discharge criteria, the patient discharged home. <ELECTRONICALLY SIGNED> By: Bud Cline DO 11/06/17817 1252 [id number] Bud Cline DO /nt
[2017-11-05 11:27] VITALS: BP 119/74
== END | disposition home or self-care (01) ==
LOC: PAIN 07:53
DX: M54.12 Radiculopathy, cervical region (principal); M54.2 Cervicalgia; M79.1 Myalgia; G89.29 Other chronic pain; Z79.891 Long term (current) use of opiate analgesic

== ENCOUNTER → 2018-01-21 | Outpatient (CLI) | payer BC ==
[~2018-01-21] VITALS: Ht 160 cm; Wt 64.4 kg
--- NOTE | ~2018-01-21 | HPC ---
[facility] [address] [place] [address] PAIN MANAGEMENT CONSULTATION Name: BIANCA PIERSON [facility] [id number] Admission: 01/21/18 Attend Phys: Amelia Adams Discharge: Date of : 81 Report #: [id number] THIS REPORT FOR: //name// CC: Amelia Adams Loly Garcia DATE OF SERVICE: 01/21/2018 CHIEF COMPLAINT: Neck pain, upper back pain, bilateral upper extremity pain. HISTORY OF PRESENT ILLNESS: The patient returns today for followup for her medication refill of her hydrocodone. She tells me that the injection that she had from Dr. Bud Cline in October helped her 70% for about 4 weeks and would like it repeated soon if she is able. She tells me that about 3 weeks ago, her arms bilaterally started hurting down to about her elbows. She continues to have some neck pain and upper back pain. It is worse when she is moving her head at her computer monitor and the weather makes it worse. She does use her medicines, Biofreeze and TENS unit and of course the epidurals all help her pain. She rates it today at 4/10. She tells me that her work has not given her an ergonomic desk or monitor, so therefore her long hours makes her neck pain worse. She is requesting a written note from Dr. Bud Cline today to see if he is willing to give her a work excuse or work decrease to 52 hours a week from 62 hours a week that she currently works. I will discuss this with Dr. Bud Cline and he will discuss it further with her at her appointment next week when she has an epidural. The patient tells me that she also uses her Flexeril and it is very helpful in reducing her muscle spasms in her neck. ALLERGIES: No known drug allergies. MEDICATION LIST: [place] 5/325 one tablet 3 times a day, Flexeril 10 mg 3 times a day and Vyvanse 1 tablet daily. PQRS: 1. The patient does have some arthritis in her neck. She denies rheumatoid arthritis. 2. Height 5 feet 3 inches, weight 142, BMI is 25.2. 3. Vital signs: Blood pressure 123/81, pulse is 103, respirations 16, oxygen sat is 97%. 4. Pain score today is 4/10. 5. Fall risk: Denies dizziness, does not need help walking or standing and has not fallen in the last 3 months. 6. Denies blood thinners or hypertension. 7. The patient takes opioids greater than 6 weeks, therefore an opioid signed contract is on the chart. 8. Risk assessment is low. Her functional assessment is 45/70. 9. Recreational drug use, she denies. She [place] [address] PAIN MANAGEMENT CONSULTATION Name: BIANCA PIERSON Room #: REG [facility] Michael#: [id number] Admission: 01/21/18 Attend Phys: Amelia Adams Discharge: Date of : 81 Report #: [id number] drinks alcohol. We checked her [place] drug monitoring system and it is appropriate for fills of her opioids from Dr. Bud Cline only and she is using one Pharmacy. At this time, there was not a current drug screen on her chart, so we elected to perform oral buccal swab today and sent off for results. PHYSICAL EXAMINATION: GENERAL: This is a well-developed, well-nourished, well-hydrated 32-year-old female who appears her stated age. Placing her pain score today of 4/10. HEENT: Normocephalic, atraumatic. Pupils equal, reactive to light and round. Extraocular muscles are intact. EXTREMITIES: Show no clubbing, no cyanosis, no edema. MUSCULOSKELETAL: Upper strength appears to be equal and symmetrical 5/5. Cervical provocation testing is met with axial back pain. She has significant pain with extension and flexion of her neck that radiates into her arms. The patient rates her pain today as 4/10. ASSESSMENT: 1. Cervical radiculopathy. 2. Chronic neck pain. 3. Cervicalgia. 4. Myofascial pain. 5. Chronic intractable pain. We reviewed the fact that opiate medications are being used to provide analgesia adequate to support activities of daily living, not attempting to achieve a specific pain score on the 0-10 Visual Analog Scale. The current opiate medications are providing sufficient analgesia to allow the patient to participate in activities of daily living. The patient is not exhibiting any aberrant behavior suggestive of drug diversion. The patient is not having any adverse reactions to medications. The patient is not suffering from daytime somnolence or mental acuity changes. The patient is managing opiate-induced constipation with appropriate asyx-byr-tsxllmv agents and dietary considerations. The patient was counseled on concern for caution with operating a motor vehicle while using opiate medications. A physical exam was performed and the patient's functional status was evaluated. All patients with back pain were advised against the bed rest greater than 4 days and were advised to return to normal activities. Pain score assessment was noted and the treatment plan was reviewed with the patient. All current medications, both prescribed and OTC were reviewed and reconciled on the electronic medical record. Tobacco screening was accomplished and smoking cessation was advised when indicated. BMI was noted and diet/exercise modification was recommended for all patients following outside normal parameters. [facility] [address] [place] [address] PAIN MANAGEMENT CONSULTATION Name: BIANCA PIERSON Room #: REG [facility] Ross.Camacho.#: [id number] Admission: 01/21/18 Attend Phys: Amelia ANN MARIE Escamillaofelia Discharge: Date of : 81 Report #: [id number] I reviewed with the patient today their responsibilities to safeguard prescription medications, reviewed their responsibility to utilize medications only as prescribed by the physician. They are to seek and receive pain medications only from 1 physician group ( [facility]). They are to use 1 pharmacy and keep the clinic informed if they change pharmacies. Their responsibilities include making followup visits in a timely fashion and to avoid abrupt discontinuation of medication usage. Their responsibilities further include bringing their medications (bottles from the pharmacy with residual pills) to the visit for possible confirmation of pill counts and the patient understands it is their responsibility to submit to random drug screens to ensure both that the medications prescribed are present, and that no other controlled substances are present. All prescriptions provided today were generated electronically. PLAN: 1. The patient returns today for a visit for refill of her hydrocodone and her Flexeril. The patient tells me that it is very helpful, especially with her long hours at work of 12-hour shifts. Script for hydrocodone 5/325, #90 for today, release in 4-week and release in 8-week were given and a prescription for Flexeril 10 mg #90 with 2 additional refills were given. 2. The patient tells me that though she had documentation from Dr. Bud Cline in the past, she did not get any ergonomic equipment for work and continues to have difficulty working 12 hours a day, multiple days in a row, total the patient states 62 hours a week. She is requesting a note or a letter written from Dr. Bud Cline to see if he is willing to decrease her work schedule to 52 hours a week, which would be 10 or less hours. Hopefully, that will cause less irritation on her neck. I will approach this subject with Dr. Bud Cline and discuss it further at her appointment next week. 3. The patient will be scheduled for a cervical epidural by Dr. Bud Cline next week. The patient has gotten significant relief, at least 70% for a month or two from these in the past and is wishing to have that repeated. 4. The patient was tested for a buccal swab today for drug screen since no recent ones have been on the chart. 5. The patient is agreeable with this plan of care and will be seen next week. The patient seen in collaboration with Dr. Bud Cline today. <ELECTRONICALLY SIGNED> By: Amelia Adams 01/22/18 0717 [id number] Amelia Adams /angie
[2018-01-21 11:17] VITALS: BP 123/81
== END ==
LOC: PAIN 07:17
DX: M54.12 Radiculopathy, cervical region (principal); M79.601 Pain in right arm; M79.602 Pain in left arm; M54.2 Cervicalgia; G89.4 Chronic pain syndrome; M79.18 Myalgia, other site

== ENCOUNTER → 2018-01-27 | Outpatient (CLI) | payer BC ==
[~2018-01-27] VITALS: Ht 160 cm; Wt 65.5 kg
--- NOTE | ~2018-01-27 | HPC ---
[facility] [place] [address] PAIN MANAGEMENT CONSULTATION Name: BIANCA PIERSON Room #: REG [facility] M.Camacho.#: [id number] Admission: 01/27/18 Attend Phys: Bud Cline DO Discharge: Date of : 81 Report #: [id number] THIS REPORT FOR: //name// CC: Bud Garcia Loly Jose HATRMAN DATE OF SERVICE: 01/27/2018 CHIEF COMPLAINT: Neck pain, upper back, and bilateral upper extremity pain. HISTORY OF PRESENT ILLNESS: As you know, the patient is a very pleasant 32-year-old female who returns today in followup visit to undergo next in the series of cervical epidural injections. The patient has done very well with combination of cervical epidural injections in conjunction with medication management. She returns today reporting pain score of around 4/10. Pain is exacerbated with certain movements, improves with rest, relaxation and epidural injections, as well as utilizing medications on an as needed basis. She returns denying any injury or trauma requesting next in the series of cervical epidural injections. ALLERGIES: No known drug allergies. CURRENT MEDICATIONS: Vyvanse 60 mg once a day, cyclobenzaprine 10 mg t.i.d. p.r.n., hydrocodone/acetaminophen 5/325 one tab p.o. q. 6 hours p.r.n. for pain. SOCIAL HISTORY: The patient denies tobacco, alcohol, IV or illicit drug use. She is working, not receiving workmen's compensation, unaccompanied today. IMAGING: No new imaging available. PHYSICAL EXAMINATION: VITAL SIGNS: Blood pressure 111/82, pulse is 96, respiratory rate 14 and unlabored. The patient is 97% on room air. Height 5 feet 3 inch tall, weight 144.4 pounds, BMI calculated 25.6. GENERAL: Well-developed, well-nourished, well-hydrated 32-year-old female appearing her stated age, placing current pain score at 4/10. HEENT: Normocephalic, atraumatic. Pupils equal, round, reactive to light. Extraocular muscles are intact. NEUROLOGIC: Speech fluent. The patient deemed a good historian. LUNGS: Clear, no wheeze, rhonchi or rales. CARDIOVASCULAR: Regular. No appreciable gallop, no rub. ABDOMEN: Soft, nontender. EXTREMITIES: Show no clubbing, no cyanosis, and no edema. MUSCULOSKELETAL: Upper extremity strength remains equal and symmetrical, 5/5. She is intact to light touch from C5-T1 dermatomes. The pain is elicited with [address] [address] PAIN MANAGEMENT CONSULTATION Name: BIANCA PIERSON Room #: REG [facility]#: [id number] Admission: 01/27/18 Attend Phys: Bud Cline DO Discharge: Date of : 81 Report #: [id number] movement of the cervical spine. Spurling's test is positive. ASSESSMENT: 1. Cervical radiculopathy. 2. Cervicalgia. 3. Chronic pain. 4. Myofascial pain. 5. Chronic intractable pain. PLAN: 1. The patient has returned today in followup visit, requesting to undergo cervical epidural injection under fluoroscopic guidance. She has received excellent benefit with previous cervical epidural injections, up to 70% improvement in overall pain. She returns to undergo the next in the series today. She has been advised the risks and benefits of this procedure, states understood and wished to proceed. 2. The patient has requested of our services to provide limitations of her work hours. The patient indicates that after an 8-hour time frame, her neck pain becomes intense enough that she is nearly unable to complete her following 4 hours for a total of 12 hours day work. She has requested that we provide her with a reduction in her hourly a timeframe, so that her neck pain does not exacerbate on a daily basis. I do feel that her symptoms are aggravated by the lack of ergonomic design at the current work place. We have requested that adjustments to be made and these have been unresolved. We have written letters in regards to this to human resources at this patient's facility, yet have received no response or changes in her workstation positioning. Due to the fact that her symptoms are exacerbated after an 8-hour period, we are limiting the patient to only 52 hours per week work due to exacerbation of neck symptoms. This was provided to the patient today. 3. We will see the patient back in followup visit for medication management, earlier if she wishes to undergo next in the series of cervical epidural injections. Procedure Note DESCRIPTION OF PROCEDURE: C7-T1 cervical epidural steroid injection under fluoroscopic guidance. After obtaining written consent, the patient was taken back to fluoroscopy suite, placed in prone position with separate pillows under chest and forehead to decrease cervical lordosis. Skin overlying the cervical area then prepped and draped in aseptic fashion. C7-T1 cervical interspace identified by AP fluoroscopy. Skin and subcutaneous tissue overlying target site of injection was anesthetized with 3 mL of 1% lidocaine. A 20-gauge 3-1/2 inch Tuohy needle advanced under fluoroscopic guidance towards [address] [address] PAIN MANAGEMENT CONSULTATION Name: BIANCA PIERSON Room #: REG [facility] Rodriguez#: [id number] Admission: 01/27/18 Attend Phys: Bud Cline DO Discharge: Date of : 81 Report #: [id number] the epidural space using a midline approach. Epidural space identified using loss of resistance to air technique. After negative aspiration for heme or cerebrospinal fluid, 1 mL of Omnipaque was injected. A cervical epidurogram was confirmed using both AP and oblique fluoroscopy. After negative aspiration for heme or cerebrospinal fluid, 5 mL of a solution containing 2 mL 40 mg per mL, 80 mg total triamcinolone, 3 mL lidocaine 1% injected slowly. Needle retracted approximately half way, flushed with 1 mL of 1% lidocaine and removed. Sterile bandage placed over injection site. No new motor deficits present in upper extremity following procedure. The patient tolerated procedure well, carefully escorted to the recovery room in stable condition. No apparent complications. After meeting discharge criteria, the patient was discharged home. By: [id number] Bud Cline DO /nt
[2018-01-27 10:30] VITALS: BP 111/82
== END | disposition home or self-care (01) ==
LOC: PAIN 06:20
DX: M54.12 Radiculopathy, cervical region (principal); G89.29 Other chronic pain; M79.10 Myalgia, unspecified site; Z79.899 Other long term (current) drug therapy; Z87.891 Personal history of nicotine dependence

== ENCOUNTER → 2018-05-05 | Outpatient (CLI) | payer BC ==
[~2018-05-05] VITALS: Ht 160 cm; Wt 66.2 kg
[2018-05-05 12:55] VITALS: BP 136/69
--- NOTE | 2018-05-05 13:00 | NUR ---
Pain Clinic Assessment: 1. History of Osteoarthritis: NO History of Rheumatoid Arthritis: NO 2. Height: 5 ft. 3 in. 160.0 cm. Weight: 146.0 lb. oz. 66.225 kg. Patient's BMI: 25.9 3. Vital Signs: BP: 136/69 Pulse: 116 Resp: 20 Temp: 02 Sat: 100 ECG Mon: 4. Pain Intensity: 3 5. Fall Risk: Dizziness: N Needs help standing or walking: N Fallen in the last 3 months: N Fall risk comments: 6. Patient on Blood Thinner: None 7. History of Hypertension: N 8. Opioid Therapy greater than 6 weeks: Y Opiate Contract Signed: 10/24/15 9. Risk Assessment Tool Provided: 4-MOD 10. Functional Assessment Tool: 11. Recreational Drug Use: Never Drug Type: Tobacco Use: Former Smoker Tobacco Type: Amount or Packs/day: How Many Years: Alcohol Use: Yes Frequency: Weekly Quant: 1-2 GLASSES OF WINE
--- NOTE | 2018-05-07 14:16 | HPC ---
[facility] [place] [address] PAIN MANAGEMENT CONSULTATION Name: BIANCA PIERSON [facility]: [facility] [id number] Admission: 05/05/18 ������������������ Attend Phys: Amelia Adams Discharge: ������������������ Date of : 81 Report #: [id number] THIS REPORT FOR: //name// CC: Amelia Adams Loly Garcia DATE OF SERVICE: 05/05/2018 CHIEF COMPLAINT: Neck, upper back pain, bilateral upper extremity pain. HISTORY OF PRESENT ILLNESS: The patient returns to the pain clinic today for her ongoing neck pain. She is here for medication refill of her hydrocodone. She tells me that the injection that she received in January gave her significant improvement of 85% for at least 6 weeks. She would like to schedule another epidural at this time to be done in the next few weeks. She also tells me that her work did reduce her hours. For now, she is working 52 hours a week. This started the end of January and the patient tells me that the reduction in her work hours has also significantly helped her decrease her medication use as well as her pain score has been decreased. She is rating her pain today at 3/10, worse when she is moving her head on her computer, using her computer monitor, the weather and activity. She tells me that her pain is worse as the day goes on. She does use her medications and TENS and Biofreeze and as I said, the epidural was significantly helping her pain. She does complain of pain in her neck, shoulders and numbness that radiates down her left arm posteriorly to her wrist. CURRENT MEDICATIONS: No known drug allergies. MEDICATIONS: Hydrocodone 5/325 p.r.n. up to 3 times a day, cyclobenzaprine 10 mg t.i.d., Vyvanse 70 mg daily. PQRS: 1. The patient does have some arthritis in her neck. She denies any rheumatoid arthritis. 2. Height is 5 feet 3 inches, weight is 146, BMI is 25.9. 3. Vital signs: Blood pressure 136/69, pulse is 116, respirations 20, oxygen sat is 100%. 4. Pain score is 3/10. 5. Fall risk: Denies dizziness, does not need help walking or standing. Has not fallen in the last 3 months. 6. The patient is not on any blood thinners or any antihypertensives. 7. Opioid therapy is greater than 6 weeks; therefore, an opioid signed contract is on the chart. 8. Risk assessment tool is moderate. Her functional assessment is 45/70. 9. Recreational drug use: She denies. She is a former smoker. She tells me she does occasionally vape, but decreasing this and using it only a couple times [address] [address] PAIN MANAGEMENT CONSULTATION Name: KENNABIANCA HUYNH [facility] [id number] Admission: 05/05/18 ������������������ Attend Phys: Amelia Adams Discharge: ������������������ Date of : 81 Report #: [id number] a week. Alcohol use: She admits to using 1-2 glasses of wine a week. We checked the prescription monitoring system. The patient is filling appropriately her medications from us. The patient tells me she also safeguards her medication. We had checked a drug screen in January. It was appropriate except for an alprazolam prescription that the patient stated that she had in the past, had taken one, did help with her sleep. She will bring a printout from [employer]. The medication is greater than 3 years old. I instructed her that since her primary care doctor had told her to stop that along with her Vyvanse that she should probably destroy that medication. She will bring the printout that shows the fill of that medication. The prescription monitoring system only goes back 2 years and she feels that this medication was given to her about 3 years ago. PHYSICAL EXAMINATION: GENERAL: This is a well-developed, well-nourished, well-hydrated 32-year-old female who appears her stated age, placing her pain score today at 3/10. HEENT: Normocephalic, atraumatic. Pupils equal, round and reactive to light. Extraocular muscles are intact. NEUROLOGICAL: Speech is fluent and the patient deemed to be a good historian. EXTREMITIES: No clubbing, no cyanosis, no edema. MUSCULOSKELETAL: Upper extremity strength remains equal and symmetrical at 5/5. Pain is elicited with movement of the cervical spine. ASSESSMENT: 1. Cervical radiculopathy. 2. Cervicalgia. 3. Chronic pain. 4. Myofascial pain. 5. Chronic intractable pain. We reviewed the fact that opiate medications are being used to provide analgesia adequate to support activities of daily living, not attempting to achieve a specific pain score on the 0-10 Visual Analog Scale. The current opiate medications are providing sufficient analgesia to allow the patient to participate in activities of daily living. The patient is not exhibiting any aberrant behavior suggestive of drug diversion. The patient is not having any adverse reactions to medications. The patient is not suffering from daytime somnolence or mental acuity changes. The patient is managing opiate-induced constipation with appropriate pdvo-fkd-rylictz agents and dietary considerations. The patient was counseled on concern for caution with operating a motor vehicle while using opiate medications. A physical exam was performed and the patient's functional status was evaluated. All patients with back pain were advised against the bed rest greater than 4 days and were advised to return to normal activities. Pain score assessment was [facility] [address] [place] [address] PAIN MANAGEMENT CONSULTATION Name: BIANCA PIERSON Room #: REG [facility]#: [id number] Admission: 05/05/18 ������������������ Attend Phys: Amelia Adams Discharge: ������������������ Date of : 81 Report #: [id number] noted and the treatment plan was reviewed with the patient. All current medications, both prescribed and OTC were reviewed and reconciled on the electronic medical record. Tobacco screening was accomplished and smoking cessation was advised when indicated. BMI was noted and diet/exercise modification was recommended for all patients following outside normal parameters. I reviewed with the patient today their responsibilities to safeguard prescription medications, reviewed their responsibility to utilize medications only as prescribed by the physician. They are to seek and receive pain medications only from 1 physician group ( [facility]). They are to use 1 pharmacy and keep the clinic informed if they change pharmacies. Their responsibilities include making followup visits in a timely fashion and to avoid abrupt discontinuation of medication usage. Their responsibilities further include bringing their medications (bottles from the pharmacy with residual pills) to the visit for possible confirmation of pill counts and the patient understands it is their responsibility to submit to random drug screens to ensure both that the medications prescribed are present, and that no other controlled substances are present. All prescriptions provided today were generated electronically. PLAN: 1. We reviewed treatment options with the patient today. The patient tells me that she is doing significantly better. She is trying to reduce her medications. She finds that the Flexeril is very helpful and continues that 3 times a day. She tells me she is trying to decrease her hydrocodone, sometimes taking only 2 pills a day. It has been 4-1/2 months since her last visit for prescriptions. We discussed trying to continue to decrease her medications. If she is able and we will see where she is at after these next 3 months, to try and decrease her hydrocodone use. 2. The patient is agreeable with this plan of care. She feels that since her work has changed her hours and then the injections, her pain continues to get better. Her goal is to decrease off her hydrocodone medications. 3. Scripts given today for: A. Hydrocodone 5/325, #90 for today, 4-week and 8-week release. B. Flexeril 10 mg 1 p.o. q.8 hours, #90 with 2 additional refills. 4. The patient made appointment to see Dr. Cline in the next couple of weeks for a cervical steroid injection. The patient is seen today in collaboration with Dr. Bud Cline. ��������������������������������������������� <ELECTRONICALLY SIGNED> ���������������������������������������� By: Amelia Adams ��������������������������������������������� 05/07/18 1416 [id number] Amelia Adams /nt
== END ==
LOC: PAIN 06:55
DX: M54.12 Radiculopathy, cervical region (principal); Z79.899 Other long term (current) drug therapy; Z87.891 Personal history of nicotine dependence

== ENCOUNTER → 2018-05-13 | Outpatient (CLI) | payer BC ==
[~2018-05-13] VITALS: Ht 160 cm; Wt 65.7 kg
[2018-05-13 11:08] VITALS: BP 126/81
--- NOTE | 2018-05-13 11:10 | NUR ---
Pain Clinic Assessment: 1. History of Osteoarthritis: NO History of Rheumatoid Arthritis: NO 2. Height: 5 ft. 3 in. 160.0 cm. Weight: 144.8 lb. oz. 65.681 kg. Patient's BMI: 25.7 3. Vital Signs: BP: 126/81 Pulse: 98 Resp: 18 Temp: 02 Sat: 100 ECG Mon: 4. Pain Intensity: 5 5. Fall Risk: Dizziness: N Needs help standing or walking: N Fallen in the last 3 months: N Fall risk comments: 6. Patient on Blood Thinner: None 7. History of Hypertension: N 8. Opioid Therapy greater than 6 weeks: Y Opiate Contract Signed: 10/24/15 9. Risk Assessment Tool Provided: 4-MOD 10. Functional Assessment Tool: 11. Recreational Drug Use: Never Drug Type: Tobacco Use: Former Smoker Tobacco Type: Amount or Packs/day: How Many Years: Alcohol Use: Yes Frequency: Quant:
--- NOTE | 2018-05-15 07:41 | HPC ---
[facility] [place] [address] PAIN MANAGEMENT CONSULTATION Name: BIANCA PIERSON Room #: REG [facility].#: [id number] Admission: 05/13/18 ������������������ Attend Phys: Bud Cline DO Discharge: ������������������ Date of : 81 Report #: [id number] THIS REPORT FOR: //name// CC: Bud HARTMAN DATE OF SERVICE: 05/13/2018 REFERRING PHYSICIAN: DEVAN Hadley CHIEF COMPLAINT: Neck pain, upper back pain and bilateral upper extremity pain. HISTORY OF PRESENT ILLNESS: As you know, the patient is a very pleasant 32-year-old female returning today in followup visit to undergo cervical epidural injection under fluoroscopic guidance to address cervical radicular symptoms. She is placing pain score at 5/10. She denies new injury, new trauma or any changes in medical history since her last visit. She describes the pain as starting in the neck and radiating to the shoulders and upper back. It is chronic and dull in sensation. It radiates and causes numbness and tingling sensations. Pain is exacerbated with movement of her head, working on her computers at work, weather changes and activity. She indicates medications, TENS units, Biofreeze and cervical epidural injections improve overall pain. She reports 85% improvement in overall pain with the previous epidural injection. She returns today to undergo next in the series to build on success of the previous intervention. ALLERGIES: No known drug allergies. CURRENT MEDICATIONS: Cyclobenzaprine, hydrocodone and Vyvanse SOCIAL HISTORY: The patient denies tobacco, alcohol, IV or illicit drug use. She is working, not receiving workmen's compensation and unaccompanied today. IMAGING: No new imaging available. PHYSICAL EXAMINATION: VITAL SIGNS: Blood pressure 126/81, pulse 98, respiratory rate 18 and unlabored. The patient is 100% on room air. Height 5 feet 3 inch tall, weight 144.8 pounds and BMI calculated 25.7. GENERAL: Well-developed, well-nourished, well-hydrated 32-year-old female appearing stated age, placing pain score today around 5/10. HEENT: Normocephalic and atraumatic. Pupils are equal, round and reactive to light. EXTREMITIES: Show no clubbing, no cyanosis and no edema. MUSCULOSKELETAL: Upper extremity strength is equal and symmetrical at 5/5. She [facility] [address] [place] [address] PAIN MANAGEMENT CONSULTATION Name: BIANCA PIERSON [facility] [id number] Admission: 05/13/18 ������������������ Attend Phys: Bud Cline DO Discharge: ������������������ Date of : 81 Report #: [id number] is intact to light touch from C5 through T1 dermatomes. Spurling's test positive. Cervical provocation testing is met with slight increase in axial neck pain. Cervical extension exacerbates symptoms and is moderately restricted. ASSESSMENT: 1. Cervical radiculopathy. 2. Cervicalgia. 3. Chronic intractable pain. PLAN: 1. The patient returns today in followup visit requesting to undergo next in the series of cervical epidural injections. The patient received 85% improvement in overall pain with previous cervical epidural injection. Unfortunately, her symptoms have begun to return. We have consented and we will perform a cervical epidural injection today. She was advised of the risks and benefits, states understood and wished to proceed. 2. The patient was provided paperwork indicating restriction in her activity. This is similar paperwork that was generated for the patient in 2016. The paperwork is on the chart if wished to be reviewed. 3. We will see the patient back in followup visit on an as needed basis for possible next in the series of cervical epidural injections. Otherwise, we will see her back for medication management as previously arranged for appointments. PROCEDURE NOTE DESCRIPTION OF PROCEDURE: C7-T1 cervical epidural steroid injection under fluoroscopic guidance. After obtaining written consent, the patient was taken back to fluoroscopy suite, placed in the prone position with separate pillows under chest and forehead to decrease cervical lordosis. Skin overlying cervical area then prepped and draped in aseptic fashion. C7-T1 cervical interspace was identified by AP fluoroscopy. Skin and subcutaneous tissue overlying target site of injection was anesthetized with 3 mL of 1% lidocaine. A 20-gauge 3-1/2 inch Tuohy needle advanced under fluoroscopic guidance towards the epidural space using a midline approach. Epidural space identified using loss of resistance to air technique. After negative aspiration for heme or cerebrospinal fluid, 1 mL of Omnipaque injected. A cervical epidurogram was confirmed using both AP and oblique fluoroscopy. After negative aspiration for heme or cerebrospinal fluid, 5 mL of a solution containing 2 mL 40 mg per mL, 80 mg total of triamcinolone, 3 mL of lidocaine 1% injected slowly. Needle retracted usp, flushed with 1 mL of 1% lidocaine and then removed. Sterile bandage placed over injection site. No new motor deficits present in the upper extremities following procedure. [facility] [address] [place] [address] PAIN MANAGEMENT CONSULTATION Name: BIANCA PIERSON Room #: REG [facility]#: [id number] Admission: 05/13/18 ������������������ Attend Phys: Bud Cline DO Discharge: ������������������ Date of : 81 Report #: [id number] The patient tolerated the procedure well, carefully escorted to recovery room in stable condition. No apparent complications. After meeting discharge criteria, the patient discharged home. ��������������������������������������������� <ELECTRONICALLY SIGNED> ���������������������������������������� By: Bud Cline DO ��������������������������������������������� 05/15/18 0741 1225 2108 Bud Cline DO /nt
== END | disposition home or self-care (01) ==
LOC: PAIN 05-12 06:55
DX: M54.12 Radiculopathy, cervical region (principal); G89.29 Other chronic pain; Z79.891 Long term (current) use of opiate analgesic; Z87.891 Personal history of nicotine dependence

== ENCOUNTER → 2018-08-18 | Outpatient (CLI) | payer BC ==
[~2018-08-18] VITALS: Ht 152.4 cm; Wt 67.0 kg
[2018-08-18 10:58] VITALS: BP 133/89
--- NOTE | 2018-08-18 11:03 | NUR ---
Pain Clinic Assessment: 1. History of Osteoarthritis: NO History of Rheumatoid Arthritis: NO 2. Height: 5 ft. 0 in. 152.4 cm. Weight: 147.6 lb. oz. 66.951 kg. Patient's BMI: 28.8 3. Vital Signs: BP: 133/89 Pulse: 116 Resp: 14 Temp: 02 Sat: 100 ECG Mon: 4. Pain Intensity: 4 5. Fall Risk: Dizziness: N Needs help standing or walking: N Fallen in the last 3 months: N Fall risk comments: 6. Patient on Blood Thinner: None 7. History of Hypertension: N 8. Opioid Therapy greater than 6 weeks: Y Opiate Contract Signed: 10/24/15 9. Risk Assessment Tool Provided: 4-MOD 10. Functional Assessment Tool: 11. Recreational Drug Use: Never Drug Type: Tobacco Use: Former Smoker Tobacco Type: Amount or Packs/day: How Many Years: Alcohol Use: Yes Frequency: Weekly Quant: 3
--- NOTE | 2018-08-19 07:17 | HPC ---
[facility] [address] [place] [address] PAIN MANAGEMENT CONSULTATION Name: BIANCA PIERSON [facility] [id number] Admission: 08/18/18 ������������������ Attend Phys: Amelia Adams Discharge: ������������������ Date of : 81 Report #: [id number] THIS REPORT FOR: //name// CC: Amelia Adams Loly Garcia DATE OF SERVICE: 08/18/2018 CHIEF COMPLAINT: Neck pain, upper back pain and bilateral upper extremity pain. HISTORY OF PRESENT ILLNESS: This is a very pleasant 32-year-old female who returns to the pain clinic today for refill of her medications that she uses to treat her ongoing cervical issues with radiculopathy down into her arms. She tells me that her last injection was very helpful in relieving her pain. She tells me that she did quite well for several months. She did go on vacation and when she returned back to work she had a flare in her pain, though it has subsided some since she has returned to work. She does continue to work 52 hours a week, which is helpful in reducing some of her pain than her previous work hours. She tells me that her pain medications are very helpful and at times she is able to take less than 3 hydrocodone a day. She has no problems with constipation. Her pain score is 4/10 today, mostly in occipital area of her neck that radiates into her shoulders, occasionally into the arms, but not currently today. She tells me that she does have a slight headache. The weather has increased her pain as well as moving her head and when she is at work her pain progresses as the day goes on and her medications are helpful. ALLERGIES: No known drug allergies. CURRENT MEDICATIONS: Flexeril 10 mg p.r.n., hydrocodone 5/325 up to 3 times a day and Vyvanse 60 mg daily. PQRS: 1. She has arthritic changes in her neck. Denies any rheumatoid arthritis. 2. Height is 5 feet, weight is 147, BMI is 28. 3. Vital Signs: Blood pressure 133/89, pulse is 116, respirations 14, oxygen sat 100. 4. Pain score is 4/10. 5. Denies dizziness. She does not need help with walking or standing and has not fallen in the last 3 months. 6. The patient is not on any blood thinners and does not take medicines for hypertension. 7. Her opioid therapy is greater than 6 weeks; therefore, an opioid signed contract is on the chart. Her risk assessment tool is moderate. Her functional assessment is 45/70. Recreational drug use she denies. She is a former smoker and occasionally drinks alcohol. [address] [address] PAIN MANAGEMENT CONSULTATION Name: BIANCA PIERSON Room #: REG [facility]#: [id number] Admission: 08/18/18 ������������������ Attend Phys: Amelia Adams Discharge: ������������������ Date of : 81 Report #: [id number] We did check the prescription monitoring system. The patient is filling appropriately for her medications and is due for her medications refill. There is a recent drug screen on the chart that is appropriate for her medications as well. PHYSICAL EXAMINATION: GENERAL: This is a well-developed, well-nourished, hydrated 32-year-old female who appears her stated age, placing her current pain score today at 4/10. HEENT: Normocephalic, atraumatic. Extraocular eye muscles are intact. Pupils equal, round and reactive to light. EXTREMITIES: No clubbing, no cyanosis, no edema. MUSCULOSKELETAL: She is intact to light touch at C5 through T1 dermatomal distribution. Cervical provocation testing is met with slight increased pain in the axial neck area. Extension of the cervical spine exacerbates symptoms. Upper extremity strength is equal and symmetrical at 5/5. ASSESSMENT: 1. Cervical radiculopathy. 2. Cervicalgia. 3. Chronic intractable pain. 4. Opioid management under terms of written opioid agreement. We reviewed the fact that opiate medications are being used to provide analgesia adequate to support activities of daily living, not attempting to achieve a specific pain score on the 0-10 Visual Analog Scale. The current opiate medications are providing sufficient analgesia to allow the patient to participate in activities of daily living. The patient is not exhibiting any aberrant behavior suggestive of drug diversion. The patient is not having any adverse reactions to medications. The patient is not suffering from daytime somnolence or mental acuity changes. The patient is managing opiate-induced constipation with appropriate okkt-qcq-snnmway agents and dietary considerations. The patient was counseled on concern for caution with operating a motor vehicle while using opiate medications. A physical exam was performed and the patient's functional status was evaluated. All patients with back pain were advised against the bed rest greater than 4 days and were advised to return to normal activities. Pain score assessment was noted and the treatment plan was reviewed with the patient. All current medications, both prescribed and OTC were reviewed and reconciled on the electronic medical record. Tobacco screening was accomplished and smoking cessation was advised when indicated. BMI was noted and diet/exercise modification was recommended for all patients following outside normal parameters. I reviewed with the patient today their responsibilities to safeguard prescription medications, reviewed their responsibility to utilize medications [address] [address] PAIN MANAGEMENT CONSULTATION Name: BIANCA PIERSON Room #: REG [facility]#: [id number] Admission: 08/18/18 ������������������ Attend Phys: Amelia ANN MARIE Anige Discharge: ������������������ Date of : 81 Report #: [id number] only as prescribed by the physician. They are to seek and receive pain medications only from 1 physician group ( [facility]). They are to use 1 pharmacy and keep the clinic informed if they change pharmacies. Their responsibilities include making followup visits in a timely fashion and to avoid abrupt discontinuation of medication usage. Their responsibilities further include bringing their medications (bottles from the pharmacy with residual pills) to the visit for possible confirmation of pill counts and the patient understands it is their responsibility to submit to random drug screens to ensure both that the medications prescribed are present, and that no other controlled substances are present. All prescriptions provided today were generated electronically. PLAN: 1. We discussed treatment options with the patient today. The patient tells me that she had been doing quite well, had gone on vacation. She did have a flareup with pain in her neck and is requesting an epidural in her cervical region. Appointment will be made with Dr. Bud Cline for repeat cervical epidural steroid injection. She has had good relief up to 85% in the past from these injections and found them very helpful. The last one was done in April, so quite some time ago. 2. Refills of medications were given today of hydrocodone 5/325 t.i.d., #90 for today for an 8-week release as well as Flexeril 10 mg up to 3 times a day with 2 additional refills. The patient currently is at 15 morphine milliequivalents per day according to the CDC guidelines while under their limit of 50 and the patient is doing quite well with this medication and enables her to function at her job though at reduced hours of 52 hours a week instead of her 60. The patient was seen with Dr. Bud Cline who collaborated care today. The patient will return next week for her epidural injection. ��������������������������������������������� <ELECTRONICALLY SIGNED> ���������������������������������������� By: Amelia Adams ��������������������������������������������� 08/19/18 0717 1133 0255 Amelia Adams /nt
== END ==
LOC: PAIN 06:42
DX: M54.12 Radiculopathy, cervical region (principal); G89.29 Other chronic pain; M54.2 Cervicalgia; Z79.891 Long term (current) use of opiate analgesic

== ENCOUNTER → 2018-08-26 | Outpatient (CLI) | payer BC ==
[~2018-08-26] VITALS: Ht 160 cm; Wt 66.7 kg
[2018-08-26 11:20] VITALS: BP 123/75
--- NOTE | 2018-08-26 11:26 | NUR ---
Pain Clinic Assessment: 1. History of Osteoarthritis: NO History of Rheumatoid Arthritis: NO 2. Height: 5 ft. 3 in. 160.0 cm. Weight: 147.0 lb. oz. 66.679 kg. Patient's BMI: 26.0 3. Vital Signs: BP: 123/75 Pulse: 84 Resp: 14 Temp: 02 Sat: 98 ECG Mon: 4. Pain Intensity: 4-5 5. Fall Risk: Dizziness: N Needs help standing or walking: N Fallen in the last 3 months: N Fall risk comments: 6. Patient on Blood Thinner: None 7. History of Hypertension: N 8. Opioid Therapy greater than 6 weeks: Y Opiate Contract Signed: 10/24/15 9. Risk Assessment Tool Provided: 4-MOD 10. Functional Assessment Tool: 11. Recreational Drug Use: Never Drug Type: Tobacco Use: Former Smoker Tobacco Type: Amount or Packs/day: How Many Years: Alcohol Use: Yes Frequency: Weekly Quant:
--- NOTE | 2018-09-02 12:16 | HPC ---
[facility] [place] [address] PAIN MANAGEMENT CONSULTATION Name: BIANCA PIERSON [id number] Admission: 08/26/18 ������������������ Attend Phys: Bud Cline DO Discharge: ������������������ Date of : 81 Report #: [id number] THIS REPORT FOR: //name// CC: Bud HARTMAN DATE OF SERVICE: 08/26/2018 REFERRING PHYSICIAN: DEVAN Hadley. CHIEF COMPLAINT: Neck pain, upper back pain, bilateral upper extremity pain. HISTORY OF PRESENT ILLNESS: As you know, the patient is a very pleasant 32-year-old female returning in followup visit, requesting to undergo a cervical epidural injection under fluoroscopic guidance. She received refill of medications through our nurse practitioner on 08/18/2018. She states the combination of epidural injections and medication management provide up to 80% improvement in overall pain. She returns today in followup visit to undergo next in the series of cervical epidural injections to address cervical pain for which she gives the pain levels of 4-5/10. ALLERGIES: No known drug allergies. CURRENT MEDICATIONS: Flexeril 10 mg p.r.n., hydrocodone 5/325 three times a day p.r.n. pain, Vyvanse 60 mg per day. SOCIAL HISTORY: The patient denies tobacco, alcohol, IV or illicit drug use. She is working, not receiving workmen's compensation, unaccompanied today. IMAGING: No new imaging available. PHYSICAL EXAMINATION: VITAL SIGNS: Blood pressure 123/75, pulse 84, respiratory rate 14 and unlabored. The patient is 98% on room air. Height 5 feet 3 inches tall, weight 147 pounds and BMI calculated 26.0. GENERAL: Well-developed, well-nourished, well-hydrated 32-year-old female appearing stated age, placing current pain score at 4-5/10. HEENT: Normocephalic, atraumatic. Pupils equal, round, reactive to light. EXTREMITIES: Show no clubbing, no cyanosis, and no edema. MUSCULOSKELETAL: Upper extremity strength is symmetrical 5/5, intact to light touch from C5-T1 dermatomes. Cervical provocation testing met with slight increase in pain mainly with rotation to the left and lateral flexion to left. Spurling's test is equivocal. ASSESSMENT: [address] [address] PAIN MANAGEMENT CONSULTATION Name: KENNABIANCA S Room #: REG [facility]#: [id number] Admission: 08/26/18 ������������������ Attend Phys: Bud Cline DO Discharge: ������������������ Date of : 81 Report #: [id number] 1. Cervical radiculopathy. 2. Cervicalgia. 3. Chronic intractable pain. PLAN: 1. The patient returns today in followup visit to undergo next in the series of cervical epidural injections. She reports combination of medications and cervical epidural injection provide up to 80% improvement in overall pain for a prolonged period. She is pleased with response to the injections and is hopeful to see similar improvement today. She has been advised risks and benefits, states understood and wished to proceed. 2. No medication changes made at today's visit. The patient will continue current medical therapy as previously prescribed. 3. We will see the patient back in followup visit on an as-needed basis for possible next in a series of cervical epidural injections. Otherwise, we will see her back in 3 months for medication management. PROCEDURE NOTE DESCRIPTION OF PROCEDURE: C7-T1 cervical epidural steroid injection under fluoroscopic guidance. After obtaining written consent, the patient was taken back to fluoroscopy suite, placed in prone position with pillow under chest and forehead to decrease cervical lordosis. Skin overlying cervical area then prepped and draped in aseptic fashion. C7-T1 cervical interspace identified by AP fluoroscopy. Skin and subcutaneous tissue overlying target site of injection was anesthetized with 3 mL of 1% lidocaine. A 20-gauge 3-1/2 inch Tuohy needle advanced under fluoroscopic guidance towards the epidural space using a midline approach. Epidural space identified using loss of resistance to air technique. After negative aspiration for heme or cerebrospinal fluid, 1 mL of Omnipaque injected. A cervical epidurogram confirmed using both AP and oblique fluoroscopy. After negative aspiration for heme or cerebrospinal fluid, 5 mL of solution containing 2 mL 40 mg per mL, 80 mg total triamcinolone, 3 mL lidocaine, 1% injected slowly. Needle retracted custodial, flushed with 1 mL of 1% lidocaine and then removed. Sterile bandage placed over injection site. No new motor deficits present in the upper extremities following procedure. The patient tolerated procedure well, carefully escorted to recovery room in [address] [address] PAIN MANAGEMENT CONSULTATION Name: BIANCA PIERSON Room #: REG [facility]#: [id number] Admission: 08/26/18 ������������������ Attend Phys: Bud Cline DO Discharge: ������������������ Date of : 81 Report #: [id number] stable condition. No apparent complication. After meeting discharge criteria, the patient discharged home. ��������������������������������������������� <ELECTRONICALLY SIGNED> ���������������������������������������� By: Bud Cline DO ��������������������������������������������� 09/02/18 1216 0826 0911 Bud Cline DO /nt
== END | disposition home or self-care (01) ==
LOC: PAIN 08-17 06:41
DX: M54.12 Radiculopathy, cervical region (principal); G89.29 Other chronic pain; Z79.891 Long term (current) use of opiate analgesic; Z87.891 Personal history of nicotine dependence; Z98.890 Other specified postprocedural states

== ENCOUNTER → 2018-11-17 | Outpatient (CLI) | payer BC ==
[~2018-11-17] VITALS: Ht 160 cm; Wt 67.5 kg
[~2018-11-17] MED LIST changes: +NORCO 5-325 TA1 EAC1 PO
[2018-11-17 12:59] VITALS: BP 151/115
--- NOTE | 2018-11-17 13:06 | NUR ---
Pain Clinic Assessment: 1. History of Osteoarthritis: NO History of Rheumatoid Arthritis: NO 2. Height: 5 ft. 3 in. 160.0 cm. Weight: 148.8 lb. oz. 67.495 kg. Patient's BMI: 26.4 3. Vital Signs: BP: 151/115 Pulse: 126 Resp: 14 Temp: 02 Sat: 100 ECG Mon: 4. Pain Intensity: 4-5 5. Fall Risk: Dizziness: N Needs help standing or walking: N Fallen in the last 3 months: N Fall risk comments: 6. Patient on Blood Thinner: None 7. History of Hypertension: N 8. Opioid Therapy greater than 6 weeks: Y Opiate Contract Signed: 10/24/15 9. Risk Assessment Tool Provided: 4-MOD 10. Functional Assessment Tool: 11. Recreational Drug Use: Never Drug Type: Tobacco Use: Former Smoker Tobacco Type: Amount or Packs/day: How Many Years: Alcohol Use: Yes Frequency: Quant:
[2018-11-17 13:08] VITALS: BP 137/95
--- NOTE | 2018-11-18 14:13 | HPC ---
[facility] [place] [address] PAIN MANAGEMENT CONSULTATION Name: BIANCA PIERSON [id number] Admission: 11/17/18 Attend Phys: Amelia Adams Discharge: Date of : 81 Report #: [id number] THIS REPORT FOR: //name// CC: Amelia Adams Loly Garcia DATE OF SERVICE: 11/17/2018 CHIEF COMPLAINT: Neck pain, upper back pain, bilateral upper extremity pain. HISTORY OF PRESENT ILLNESS: This is a very pleasant 32-year-old female who returns to the pain clinic today for a refill of her medications. She tells me that they are very beneficial in helping her relieve her neck and shoulder pain. She also tells me that the epidural steroid injection that she received in August helped her at least 70%. The past few weeks, it has slowly been returning and thinks that it is about time to have another one which at that point it will be 3 months in between these injections for her cervical epidural steroid injection under fluoroscopy. She tells me since the past injection she was able to some days only take 1 pain pill a day and on a bad day after working, she may require 2-3. She also takes her Flexeril 3 times a day. 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 ALLERGIES: No known drug allergies. CURRENT LIST OF MEDICATIONS: Flexeril 10 mg t.i.d. p.r.n., hydrocodone 5/325 p.r.n. and Vyvanse 70 mg daily. PQRS: 1. She has no history of osteoarthritis or rheumatoid arthritis. 2. Height is 5 feet 3 inches, weight is 148, BMI is 26. 3. Vital signs, 151/115, pulse is 126, respirations 14, oxygen sat is 100. It was taken again at 137/95, pulse is 110, respirations 14, oxygen sat is 100. 4. Pain score 4-5. 5. Denies dizziness, does not need help walking or standing, has not fallen in the last 3 months. The patient is not on any blood thinners, does not take medicine for hypertension. 6. Opioid therapy is greater than 6 weeks; therefore, an opiate signed contract is on the chart. Risk assessment is moderate. Functional assessment is 45/70. 7. Recreational drug use, she denies. She is a former smoker and does drink alcohol. According to the prescription monitoring system, the patient is filling her [address] [address] PAIN MANAGEMENT CONSULTATION Name: KENNABIANCA Annel Room #: REG [facility] Rodriguez#: [id number] Admission: 11/17/18 Attend Phys: Amelia Adams Discharge: Date of : 81 Report #: [id number] medications appropriately in a timely fashion. There is a recent drug screen on the chart as well. PHYSICAL EXAMINATION: GENERAL: This is a well-developed, well-nourished, well-hydrated 32-year-old female who appears her stated age, placing her current pain score at 4-5/10 today. HEENT: Normocephalic, atraumatic. Extraocular eye muscles are intact. Mucous membranes are moist. Pupils are equal, round and reactive to light. EXTREMITIES: No clubbing, no cyanosis, no edema. MUSCULOSKELETAL: Cervical provocation testing is met with slight increase in pain in her axial neck area. Upper extremity strength judged to be equal at 5/5. She is intact to light touch at C5 through T1 on the dermatomal distribution. Extension of the cervical spine exacerbates her symptoms. ASSESSMENT: 1. Cervical radiculopathy. 2. Cervicalgia. 3. Chronic intractable pain. 4. Opioid management under terms of written opioid agreement. We reviewed the fact that opiate medications are being used to provide analgesia adequate to support activities of daily living, not attempting to achieve a specific pain score on the 0-10 Visual Analog Scale. The current opiate medications are providing sufficient analgesia to allow the patient to participate in activities of daily living. The patient is not exhibiting any aberrant behavior suggestive of drug diversion. The patient is not having any adverse reactions to medications. The patient is not suffering from daytime somnolence or mental acuity changes. The patient is managing opiate-induced constipation with appropriate kqus-jaj-jecnsko agents and dietary considerations. The patient was counseled on concern for caution with operating a motor vehicle while using opiate medications. A physical exam was performed and the patient's functional status was evaluated. All patients with back pain were advised against the bed rest greater than 4 days and were advised to return to normal activities. Pain score assessment was noted and the treatment plan was reviewed with the patient. All current medications, both prescribed and OTC were reviewed and reconciled on the electronic medical record. Tobacco screening was accomplished and smoking cessation was advised when indicated. BMI was noted and diet/exercise modification was recommended for all patients following outside normal parameters. I reviewed with the patient today their responsibilities to safeguard prescription medications, reviewed their responsibility to utilize medications only as prescribed by the physician. They are to seek and receive pain [address] [address] PAIN MANAGEMENT CONSULTATION Name: BIANCA PIERSON Room #: REG [facility]#: [id number] Admission: 11/17/18 Attend Phys: Amelia Adams Discharge: Date of : 81 Report #: [id number] medications only from 1 physician group ( [facility]). They are to use 1 pharmacy and keep the clinic informed if they change pharmacies. Their responsibilities include making followup visits in a timely fashion and to avoid abrupt discontinuation of medication usage. Their responsibilities further include bringing their medications (bottles from the pharmacy with residual pills) to the visit for possible confirmation of pill counts and the patient understands it is their responsibility to submit to random drug screens to ensure both that the medications prescribed are present, and that no other controlled substances are present. All prescriptions provided today were generated electronically. PLAN: 1. We discussed treatment options with the patient today. The patient finds her Flexeril and hydrocodone very beneficial. We did discuss that she is here today needing a refill of her Flexeril, but not quite needing her hydrocodone since she is taking a few less tablets since her epidural injection has helped so much. Therefore, we discussed determining if she truly needs 90 tablets in a month or she may be able to decrease to 75 tablets per month of her hydrocodone. The patient will continue with the 3 tablets a day and in the next medication visit, we may decrease that at that time. The patient verbalizes understanding and willingness to decrease if she is not needing them. She will keep track. 2. Scripts given today for hydrocodone 5/325, #90 to release today for an 8 week and Flexeril 10 mg #90 with 3 additional refills. 3. Appointment made with Dr. Bud Cline for a cervical epidural steroid injection under fluoroscopy for 11/24. The patient will be off that day and the next day, so she is able to rest prior to returning to work. 4. 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 She does not think that that will be beneficial since the monitor is what gives her problem and not her chair that she will make them known this at work since Dr. Cline has written accommodations for her work hours and her monitor hype. The patient is seen in collaboration today with Dr. Bud Cline. <ELECTRONICALLY SIGNED> By: Amelia Adams 11/18/18 1413 [id number] Amelia Adams /nt
== END ==
LOC: PAIN 07:05
DX: M54.12 Radiculopathy, cervical region (principal); G89.4 Chronic pain syndrome; Z79.891 Long term (current) use of opiate analgesic; Z79.899 Other long term (current) drug therapy

== ENCOUNTER → 2018-11-24 | Outpatient (CLI) | payer BC ==
[~2018-11-24] VITALS: Ht 160 cm; Wt 67.3 kg
[2018-11-24 13:06] VITALS: BP 120/86
--- NOTE | 2018-11-24 13:12 | NUR ---
Pain Clinic Assessment: 1. History of Osteoarthritis: NO History of Rheumatoid Arthritis: NO 2. Height: 5 ft. 3 in. 160.0 cm. Weight: 148.4 lb. oz. 67.314 kg. Patient's BMI: 26.3 3. Vital Signs: BP: 120/86 Pulse: 103 Resp: 14 Temp: 02 Sat: 100 ECG Mon: 4. Pain Intensity: 4-5 5. Fall Risk: Dizziness: N Needs help standing or walking: N Fallen in the last 3 months: N Fall risk comments: 6. Patient on Blood Thinner: None 7. History of Hypertension: N 8. Opioid Therapy greater than 6 weeks: Y Opiate Contract Signed: 10/24/15 9. Risk Assessment Tool Provided: 4-MOD 10. Functional Assessment Tool: 11. Recreational Drug Use: Never Drug Type: Tobacco Use: Former Smoker Tobacco Type: Amount or Packs/day: How Many Years: Alcohol Use: Yes Frequency: Quant:
== END | disposition home or self-care (01) ==
LOC: PAIN 06:50
DX: M54.12 Radiculopathy, cervical region (principal); G89.29 Other chronic pain; Z87.891 Personal history of nicotine dependence; Z79.899 Other long term (current) drug therapy; Z98.890 Other specified postprocedural states; Z79.891 Long term (current) use of opiate analgesic

== ENCOUNTER → 2019-03-03 | Outpatient (CLI) | payer BC ==
[~2019-03-03] VITALS: Ht 160 cm; Wt 66.5 kg
--- NOTE | ~2019-03-03 | P ---
[facility] [place] [address] PROCEDURE REPORT Name: BIANCA HANNAH Room #: REG [facility].#: [id number] Admission: 03/03/19 Attend Phys: Bud Cline DO Discharge: Date of : 81 Report #: [id number] THIS REPORT FOR: //name// CC: FAM unknown Bud Cline DATE OF SERVICE: 03/03/2019 DESCRIPTION OF PROCEDURE: C7-T1 cervical epidural steroid injection under fluoroscopic guidance. After obtaining written consent, the patient was taken back to fluoroscopy suite, placed in prone position with separate pillows under chest and forehead to decrease cervical lordosis. Skin overlying cervical area prepped and draped in aseptic fashion. C7-T1 cervical interspace identified by AP fluoroscopy. Skin and subcutaneous tissue overlying target site injection anesthetized with 3 mL of 1% lidocaine. A 20-gauge 3-1/2 inch Tuohy needle advanced under fluoroscopic guidance towards the epidural space using midline approach. Epidural space identified using loss of resistance to air technique. After negative aspiration for heme or cerebrospinal fluid, 1 mL of Omnipaque injected. A cervical epidurogram was confirmed using both AP and oblique fluoroscopy. After negative aspiration for heme or cerebrospinal fluid, 5 mL of a solution containing 2 mL, 40 mg per mL, 80 mg total triamcinolone along with 3 mL lidocaine 1% injected slowly. Needle retracted shelter, flushed with 1 mL of 1% lidocaine and then removed. Sterile bandage placed over injection site. No new motor deficits present in lower extremities or the upper extremities following procedure. The patient tolerated the procedure well, carefully escorted to recovery room in stable condition. No apparent complications. After meeting discharge criteria, the patient discharged home. By: [id number] [id number] Bud Cline DO /nt
[2019-03-03 13:19] VITALS: BP 146/93
--- NOTE | 2019-03-03 13:32 | NUR ---
Pain Clinic Assessment: 1. History of Osteoarthritis: NO History of Rheumatoid Arthritis: NO 2. Height: 5 ft. 3 in. 160.0 cm. Weight: 146.6 lb. oz. 66.497 kg. Patient's BMI: 26.0 3. Vital Signs: BP: 146/93 Pulse: 112 Resp: 14 Temp: 02 Sat: 100 ECG Mon: 4. Pain Intensity: 4 5. Fall Risk: Dizziness: N Needs help standing or walking: N Fallen in the last 3 months: N Fall risk comments: 6. Patient on Blood Thinner: None 7. History of Hypertension: N 8. Opioid Therapy greater than 6 weeks: Y Opiate Contract Signed: 10/24/15 9. Risk Assessment Tool Provided: 4-MOD 10. Functional Assessment Tool: 11. Recreational Drug Use: Never Drug Type: Tobacco Use: Vaping Tobacco Type: E-Cigarettes Amount or Packs/day: How Many Years: 1 Alcohol Use: Yes Frequency: Quant:
== END | disposition home or self-care (01) ==
LOC: PAIN 06:57
DX: M54.2 Cervicalgia (principal); G89.29 Other chronic pain; Z98.890 Other specified postprocedural states; Z79.891 Long term (current) use of opiate analgesic

== ENCOUNTER → 2019-06-08 | Outpatient (CLI) | payer BC ==
[~2019-06-08] VITALS: Ht 160 cm; Wt 66.0 kg
[2019-06-08 11:12] VITALS: BP 126/93
--- NOTE | 2019-06-08 11:24 | NUR ---
Pain Clinic Assessment: 1. History of Osteoarthritis: DENIES History of Rheumatoid Arthritis: DENIES 2. Height: 5 ft. 3 in. 160.0 cm. Weight: 145.4 lb. oz. 65.953 kg. Patient's BMI: 25.8 3. Vital Signs: BP: 126/93 Pulse: 99 Resp: 14 Temp: 02 Sat: 100 ECG Mon: 4. Pain Intensity: 2 5. Fall Risk: Dizziness: N Needs help standing or walking: N Fallen in the last 3 months: N Fall risk comments: 6. Patient on Blood Thinner: None 7. History of Hypertension: N 8. Opioid Therapy greater than 6 weeks: Y Opiate Contract Signed: 10/24/15 9. Risk Assessment Tool Provided: 4-MOD 10. Functional Assessment Tool: 11. Recreational Drug Use: Never Drug Type: Tobacco Use: Vaping Tobacco Type: E-Cigarettes Amount or Packs/day: How Many Years: Alcohol Use: Yes Frequency: Weekly Quant:
--- NOTE | 2019-06-10 09:06 | HPC ---
[facility] [address] [place] [address] PAIN MANAGEMENT CONSULTATION Name: BIANCA HANNAH [facility] #: [facility] [id number] Admission: 06/08/19 Attend Phys: Amelia Adams Discharge: Date of : 81 Report #: [id number] THIS REPORT FOR: cc: FAM - Family physician unknown FAM - Family physician unknown Amelia Adams ~ DATE OF SERVICE: 06/08/2019 CHIEF COMPLAINT: Neck pain, upper back pain, bilateral extremity pain, paresthesias. HISTORY OF PRESENT ILLNESS: This is a very pleasant 33-year-old female who returns to the pain clinic today for refill of her hydrocodone that she uses to help treat her ongoing cervical neck pain and arm pain. Today, she is reporting a pain score of 2/10. It is a dull aching pain. She feels that the epidural that Dr. Bud Cline performed in February afforded her 85% relief and has steadily decreasing in efficacy but it has been greater than 3 months since that injection. She was thinking about trying to schedule another injection soon, but she is worried with the COVID virus and being around other people. She thinks that she will delay this currently. Today, she would just like a refill of her hydrocodone. 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 She feels the medication as well as her TENS unit and Biofreeze are very beneficial. ALLERGIES: No known drug allergies. CURRENT LIST OF MEDICATIONS: Hydrocodone 5/325 p.r.n., Flexeril 10 mg t.i.d., and Vyvanse. PQRS: 1. She denies history of osteoarthritis or rheumatoid arthritis. 2. Height is 5 feet. Weight is 145, BMI is 25. 3. Vital signs 126/93, pulse is 99, respirations 14, oxygen sat is 100. 4. Pain score is 2/10. 5. Denies dizziness. She does not need help walking or standing, has not fallen in the last 3 months. 6. The patient is not on any blood thinners or take medicine for hypertension. Opioid therapy is greater than 6 weeks; therefore, an opioid signed contract is on the chart. Risk assessment is moderate. Functional assessment is 30/70. 7. Recreational drug use, she denies. She does e-cig vaping and occasionally drinks alcohol. According to the prescription monitoring system, the patient is filling appropriately for her medications. She is due early next week to fill these medicines. According to the CDC guidelines, she is at [address] [place] [address] PAIN MANAGEMENT CONSULTATION Name: BIANCA HANNAH Room #: REG [facility] Rodriguez#: [id number] Admission: 06/08/19 Attend Phys: Amelia Adams Discharge: Date of : 81 Report #: [id number] PHYSICAL EXAMINATION: GENERAL: This is alert and orientated, well-developed, well-nourished 33-year-old female who appears her stated age, placing her current pain score at 2/10 today. HEENT: Normocephalic, atraumatic. Pupils equal, round and reactive to light. EXTREMITIES: No clubbing, no cyanosis, no edema. MUSCULOSKELETAL: She has pain with cervical provocation including extension, rotation and lateral tilt increases her pain. Muscle tone and strength is symmetrical at 5/5 in her upper extremities. ASSESSMENT: 1. Cervical radiculopathy. 2. Cervicalgia. 3. Chronic intractable pain. 4. Opioid management under terms of written opioid agreement. We reviewed the fact that opiate medications are being used to provide analgesia adequate to support activities of daily living, not attempting to achieve a specific pain score on the 0-10 Visual Analog Scale. The current opiate medications are providing sufficient analgesia to allow the patient to participate in activities of daily living. The patient is not exhibiting any aberrant behavior suggestive of drug diversion. The patient is not having any adverse reactions to medications. The patient is not suffering from daytime somnolence or mental acuity changes. The patient is managing opiate-induced constipation with appropriate [id number]-mqshluy agents and dietary considerations. The patient was counseled on concern for caution with operating a motor vehicle while using opiate medications. PLAN: 1. We discussed treatment options with the patient today. The patient feels that the epidural steroid injection that Dr. Bud Cline performed gave her at least 85% relief and continues to be beneficial. She is considering another epidural, but will wait at least 1 more month until the COVID-19 virus subsides. She will feel more comfortable coming at that time for an injection. In the meantime, she will continue her hydrocodone 5/325 up to 3 times a day. We will have Dr. Cline electronically send 3 months of medications for her. 2. The patient will continue her Flexeril 10 mg 3 times a day. He will electronically send #90 with 5 refills to her pharmacy. 3. The patient is seen today in collaboration with Dr. Bud Cline. <ELECTRONICALLY SIGNED> By: Amelia Adams 06/10/19 0906 [id number] Amelia Adams /nt
== END ==
LOC: PAIN 06:45
DX: M54.12 Radiculopathy, cervical region (principal); G89.29 Other chronic pain; F11.20 Opioid dependence, uncomplicated; R20.2 Paresthesia of skin; Z79.84 Long term (current) use of oral hypoglycemic drugs; Z79.899 Other long term (current) drug therapy

== ENCOUNTER → 2019-09-29 | Outpatient (CLI) | payer BC ==
[~2019-09-29] VITALS: Ht 160 cm; Wt 67.0 kg
[~2019-09-29] MED LIST changes: +NORCO 5-325 TA1 EAC2 PO; -VYVANSE60 MG PO; +VYVANSE70 MG PO
[2019-09-29 09:54] VITALS: BP 133/94
--- NOTE | 2019-09-29 10:25 | NUR ---
Pain Clinic Assessment: 1. History of Osteoarthritis: DENIES History of Rheumatoid Arthritis: DENIES 2. Height: 5 ft. 3 in. 160.0 cm. Weight: 147.6 lb. oz. 66.951 kg. Patient's BMI: 26.2 3. Vital Signs: BP: 133/94 Pulse: 105 Resp: 14 Temp: 02 Sat: 97 ECG Mon: 4. Pain Intensity: 2 5. Fall Risk: Dizziness: N Needs help standing or walking: N Fallen in the last 3 months: N Fall risk comments: 6. Patient on Blood Thinner: None 7. History of Hypertension: N 8. Opioid Therapy greater than 6 weeks: Y Opiate Contract Signed: 10/24/15 9. Risk Assessment Tool Provided: 4-MOD 10. Functional Assessment Tool: 11. Recreational Drug Use: Never Drug Type: Tobacco Use: Vaping Tobacco Type: E-Cigarettes Amount or Packs/day: How Many Years: 6 Alcohol Use: Yes Frequency: Weekly Quant: 2 GLASSES WINE
--- NOTE | 2019-09-29 15:31 | HPC ---
[facility] [address] [place] [address] PAIN MANAGEMENT CONSULTATION Name: BIANCA HANNAH [facility] [id number] Admission: 09/29/19 Attend Phys: Amelia Adams Discharge: Date of : 81 Report #: [id number] THIS REPORT FOR: cc: FAM - Family physician unknown FAM - Family physician unknown Amelia Adams ~ CC: Bud Cline DO DATE OF SERVICE: 09/29/2019 CHIEF COMPLAINT: Neck pain, upper extremity pain, bilateral extremity pain and paresthesias. HISTORY OF PRESENT ILLNESS: This is a very pleasant 33-year-old female who returns today for refill of her opioid medications. 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 She reports that she is not doing shift work, either she has a 9-5 job with no weekends. She feels overall this has greatly benefited and decreased her pain. Today, she is rating it a 2/10. Our last visit was greater than 3 months that she has been able to decrease her overall opioid use as well. She does report pain in her neck and shoulders that is a dull aching pain, worse with weather changes and again with moving her head. She feels the Biofreeze medication and TENS unit have not beneficial. She feels that she will be able to decrease her medications in the near future and hopefully her plan would be like to wean off of her opioid medications. She denies any daytime somnolence or constipation issues on her current pain regimen. ALLERGIES: No known drug allergies. CURRENT MEDICATIONS: Flexeril 10 mg t.i.d., hydrocodone 5/325 p.r.n., and Vyvanse. PQRS: 1. She denies osteo or rheumatoid arthritis. 2. Height is 5 feet 3 inches, weight is 147, BMI is 26. 3. Vital signs 133/94, pulse is 105, respirations 14, oxygen sat is 97. 4. Pain score is 2/10. 5. Denies dizziness, does not need help walking or standing, has not fallen in the last 3 months. 6. The patient is not on any blood thinners or medicine for hypertension. 7. Opioid therapy is greater than 6 weeks; therefore, an opioid signed contract is on the chart. Risk assessment is moderate. Functional assessment is 45/70. 8. Recreational drug use, she denies. She uses e-cigs, vaping and occasionally drinks alcohol. [address] [address] PAIN MANAGEMENT CONSULTATION Name: BIANCA HANNAH Room #: REG [facility] Michael#: [id number] Admission: 09/29/19 Attend Phys: Amelia Adams Discharge: Date of : 81 Report #: [id number] According to the prescription monitoring system, the patient is filling appropriately. She has gone slightly longer between fills and shows me about 10 hydrocodone that she does have left from her prescriptions. Her current morphine mEq if she takes her full prescription is 15 MMEs per day. PHYSICAL EXAMINATION: GENERAL: This is alert and orientated, well-developed, well-nourished 33-year-old female who is rating her pain score at 2/10 today. She is a good historian. HEENT: Normocephalic, atraumatic. Pupils equal, round and reactive to light. She is wearing a mask. EXTREMITIES: No clubbing, no cyanosis, no edema. MUSCULOSKELETAL: She has pain and cervical provocation including extension, rotation, and lateral tilt does increase her pain. Muscle tone and strength is symmetrical at 5/5 in her upper extremities. ASSESSMENT: 1. Cervical radiculopathy. 2. Cervicalgia. 3. Chronic intractable pain. 4. Opioid management under terms of written agreement. We reviewed the fact that opiate medications are being used to provide analgesia adequate to support activities of daily living, not attempting to achieve a specific pain score on the 0-10 Visual Analog Scale. The current opiate medications are providing sufficient analgesia to allow the patient to participate in activities of daily living. The patient is not exhibiting any aberrant behavior suggestive of drug diversion. The patient is not having any adverse reactions to medications. The patient is not suffering from daytime somnolence or mental acuity changes. The patient is managing opiate-induced constipation with appropriate cmzx-jit-xtcmrfa agents and dietary considerations. The patient was counseled on concern for caution with operating a motor vehicle while using opiate medications. A physical exam was performed and the patient's functional status was evaluated. All patients with back pain were advised against the bed rest greater than 4 days and were advised to return to normal activities. Pain score assessment was noted and the treatment plan was reviewed with the patient. All current medications, both prescribed and OTC were reviewed and reconciled on the electronic medical record. Tobacco screening was accomplished and smoking cessation was advised when indicated. BMI was noted and diet/exercise modification was recommended for all patients following outside normal parameters. I reviewed with the patient today their responsibilities to safeguard prescription medications, reviewed their responsibility to utilize medications [address] [address] PAIN MANAGEMENT CONSULTATION Name: BIANCA HANNAH Room #: REG CLI Ernst#: [id number] Admission: 09/29/19 Attend Phys: Amelia ANN MARIE Adams Discharge: Date of : 81 Report #: [id number] only as prescribed by the physician. They are to seek and receive pain medications only from 1 physician group ( [facility] They are to use 1 pharmacy and keep the clinic informed if they change pharmacies. Their responsibilities include making followup visits in a timely fashion and to avoid abrupt discontinuation of medication usage. Their responsibilities further include bringing their medications (bottles from the pharmacy with residual pills) to the visit for possible confirmation of pill counts and the patient understands it is their responsibility to submit to random drug screens to ensure both that the medications prescribed are present, and that no other controlled substances are present. All prescriptions provided today were generated electronically. PLAN: 1. We discussed treatment options today. The patient has a new job at the police department by changing positions. She does not need to look at a computer all day that had been elevated, causing her increased pain. She believes this move has been beneficial for her health. She has been able to decrease her medications some, though the past few weeks with weather changes, she has been requiring all of her opioid medications. Her goal is to decrease and hopefully wean off if she is able since this new job has enabled her to get better sleep and be more active and moving, which has decreased her pain. We did discuss that we will continue her hydrocodone 5/325 three times a day for the next few months. I encouraged the patient to set aside her unused pills and determine how many that she is truly taking if we are able to continue to go 3-1/2 to 4 months between fills, we will decrease her medications to 75 or 60 tablets per month. The patient is agreeable with this plan. Ultimately, as I said, she would like to wean off of them. 2. The patient finds the Flexeril very beneficial in controlling muscle spasms in her neck. We will continue this medication on a regular basis for her. No scripts needed today. 3. The patient will return in 3-4 months as needed for medication refills. The patient is seen today in collaboration with Dr. Bud Cline. <ELECTRONICALLY SIGNED> By: Amelia Adams 09/29/19 1531 [id number] Amelia Adams /nt
== END ==
LOC: PAIN 09-28 08:23
PROVIDERS: ATTEND Clinical Nurse Specialist Adult Health
DX: M54.12 Radiculopathy, cervical region (principal); M79.604 Pain in right leg; M79.605 Pain in left leg; R20.2 Paresthesia of skin; G89.29 Other chronic pain; F11.20 Opioid dependence, uncomplicated; F17.290 Nicotine dependence, other tobacco product, uncomplicated; Z79.899 Other long term (current) drug therapy

== ENCOUNTER → 2020-01-26 | Outpatient (CLI) | payer BC ==
[~2020-01-26] VITALS: Ht 160 cm; Wt 67.0 kg
[2020-01-26 08:08] VITALS: BP 126/83
--- NOTE | 2020-01-26 08:12 | NUR ---
Pain Clinic Assessment: 1. History of Osteoarthritis: DENIES History of Rheumatoid Arthritis: DENIES 2. Height: 5 ft. 3 in. 160.0 cm. Weight: 147.6 lb. oz. 66.951 kg. Patient's BMI: 26.2 3. Vital Signs: BP: 126/83 Pulse: 98 Resp: 16 Temp: 02 Sat: 100 ECG Mon: 4. Pain Intensity: 4 5. Fall Risk: Dizziness: N Needs help standing or walking: N Fallen in the last 3 months: N Fall risk comments: 6. Patient on Blood Thinner: None 7. History of Hypertension: N 8. Opioid Therapy greater than 6 weeks: Y Opiate Contract Signed: 10/24/15 9. Risk Assessment Tool Provided: 4-MOD 10. Functional Assessment Tool: 11. Recreational Drug Use: Never Drug Type: Tobacco Use: Vaping Tobacco Type: Amount or Packs/day: How Many Years: Alcohol Use: Yes Frequency: Weekly Quant: 1 GLASS OF WINE
--- NOTE | 2020-01-28 08:15 | HPC ---
[facility] [address] [place] [address] PAIN MANAGEMENT CONSULTATION Name: BIANCA HANNAH Room #: REG [facility] Manju.#: [id number] Admission: 01/26/20 Attend Phys: Amelia Adams Discharge: Date of : 81 Report #: [id number] THIS REPORT FOR: cc: FAM - Family physician unknown FAM - Family physician unknown Amelia Adams ~ CC: Amelia Cline DO DATE OF SERVICE: 01/26/2020 CHIEF COMPLAINT: Neck pain, upper extremity pain and paresthesias. HISTORY OF PRESENT ILLNESS: As you know, this is a very pleasant 34-year-old female who returns to the pain clinic today for refill of her opioid medications. Today, she is reporting that her pain is well controlled at a 4/10. She believes that the weather has increased it slightly yesterday, but she feels overall since her new position at work. She has been able to tolerate her pain better and is taking less pain pills on several days. She does take her Flexeril 3 times a day and uses a pressure point massage device that her has purchased for her. She finds those are all beneficial in controlling her pain. She does state that her pain is worse in her neck and shoulders. It is an aching, dull pain that is worse with flexion of her neck. She denies any problems with constipation or daytime somnolence as a result of her opioid medications. ALLERGIES: No known drug allergies. CURRENT LIST OF MEDICATIONS: Hydrocodone 5/325 p.r.n., Flexeril 10 mg t.i.d., and Vyvanse. PQRS: 1. She denies any osteoarthritis or rheumatoid arthritis. 2. Height is 5 feet 3 inches, weight is 147, BMI is 26. 3. Vital signs 126/83, pulse is 98, respirations 16, oxygen sat is 100. 4. Pain score is 4/10. 5. Denies dizziness, does not need help walking or standing, has not fallen in the last 3 months. 6. The patient is not on any blood thinners or medicine for hypertension. 7. Opioid therapy is greater than 6 weeks; therefore, an opioid signed contract is on the chart. Risk assessment is low. Functional assessment is 45/70. 8. Recreational drug use, she denies. She does vape and does drink alcohol occasionally. According to the prescription monitoring system, the patient is filling appropriately in a timely fashion. Her morphine milliequivalent is 10-15 [place] [address] PAIN MANAGEMENT CONSULTATION Name: BIANCA HANNAH [facility] [id number] Admission: 01/26/20 Attend Phys: Amelia Adams Discharge: Date of : 81 Report #: [id number] per day. We will collect a random drug screen on this patient today since it has been greater than a year since her last screening. PHYSICAL EXAMINATION: GENERAL: This is alert and orientated, very pleasant 34-year-old female who appears her stated age, placing her current pain score at 4/10. She is a good historian. She is well-developed and well-nourished. HEENT: Normocephalic, atraumatic. Pupils are equal, round and reactive to light. She is wearing a mask. EXTREMITIES: No clubbing, no cyanosis, no edema. MUSCULOSKELETAL: She has pain with cervical provocation testing including flexion and extension that increases her pain. Her muscle tone and strength is symmetrical at 5/5 in all major muscle groups in her upper extremities. ASSESSMENT: 1. Cervical radiculopathy. 2. Cervicalgia. 3. Chronic intractable pain. 4. Opioid medication management following written agreement. We reviewed the fact that opiate medications are being used to provide analgesia adequate to support activities of daily living, not attempting to achieve a specific pain score on the 0-10 Visual Analog Scale. The current opiate medications are providing sufficient analgesia to allow the patient to participate in activities of daily living. The patient is not exhibiting any aberrant behavior suggestive of drug diversion. The patient is not having any adverse reactions to medications. The patient is not suffering from daytime somnolence or mental acuity changes. The patient is managing opiate-induced constipation with appropriate pqgs-wge-wteiliy agents and dietary considerations. The patient was counseled on concern for caution with operating a motor vehicle while using opiate medications. A physical exam was performed and the patient's functional status was evaluated. All patients with back pain were advised against the bed rest greater than 4 days and were advised to return to normal activities. Pain score assessment was noted and the treatment plan was reviewed with the patient. All current medications, both prescribed and OTC were reviewed and reconciled on the electronic medical record. Tobacco screening was accomplished and smoking cessation was advised when indicated. BMI was noted and diet/exercise modification was recommended for all patients following outside normal parameters. I reviewed with the patient today their responsibilities to safeguard prescription medications, reviewed their responsibility to utilize medications only as prescribed by the physician. They are to seek and receive pain medications only from 1 physician group ([facility]). They are to use [address] [address] PAIN MANAGEMENT CONSULTATION Name: BIANCA HANNAH Room #: REG [facility] Rodriguez#: [id number] Admission: 01/26/20 Attend Phys: Amelia Adams Discharge: Date of : 81 Report #: [id number] pharmacy and keep the clinic informed if they change pharmacies. Their responsibilities include making followup visits in a timely fashion and to avoid abrupt discontinuation of medication usage. Their responsibilities further include bringing their medications (bottles from the pharmacy with residual pills) to the visit for possible confirmation of pill counts and the patient understands it is their responsibility to submit to random drug screens to ensure both that the medications prescribed are present, and that no other controlled substances are present. All prescriptions provided today were generated electronically. PLAN: 1. We discussed treatment options with the patient today. The patient states most days she is utilizing 2 of her hydrocodone medications. We discussed decreasing her from 90 tablets a month to 75. The patient is willing to try this for the next 3 months. I instructed the patient to call if she finds that she is needing more than 75 a month, but per the PDMP report, it appears that she is filling every 40-45 days. Scripts will be sent electronically by Dr. Bud Cline for hydrocodone 5/325, #75. 2. We will continue the patient on her Flexeril tablets 10 mg, #90 with 5 additional refills. This is a 6-month supply of this medication. 3. We will collect a random drug screen on the patient today and she will return in 3 months. The patient is seen today in collaboration with Dr. Bud Cline. <ELECTRONICALLY SIGNED> By: Amelia Adams 01/28/20 0815 [id number] Amelia arteaga
== END ==
LOC: PAIN 06:47
PROVIDERS: ATTEND Clinical Nurse Specialist Adult Health
DX: M54.12 Radiculopathy, cervical region (principal); G89.29 Other chronic pain; F11.20 Opioid dependence, uncomplicated

== ENCOUNTER → 2020-04-26 | Outpatient (CLI) | payer BC ==
[~2020-04-26] VITALS: Ht 160 cm; Wt 67.2 kg
[~2020-04-26] MED LIST changes: +NORCO5 PO
[2020-04-26 12:35] VITALS: BP 141/89
--- NOTE | 2020-04-26 12:43 | NUR ---
Pain Clinic Assessment: 1. History of Osteoarthritis: DENIES History of Rheumatoid Arthritis: DENIES 2. Height: 5 ft. 3 in. 160.0 cm. Weight: 148.2 lb. oz. 67.223 kg. Patient's BMI: 26.3 3. Vital Signs: BP: 141/89 Pulse: 114 Resp: 16 Temp: 02 Sat: 98 ECG Mon: 4. Pain Intensity: 4 5. Fall Risk: Dizziness: N Needs help standing or walking: N Fallen in the last 3 months: N Fall risk comments: 6. Patient on Blood Thinner: None 7. History of Hypertension: N 8. Opioid Therapy greater than 6 weeks: Y Opiate Contract Signed: 10/24/15 9. Risk Assessment Tool Provided: 4-MOD 10. Functional Assessment Tool: 11. Recreational Drug Use: Never Drug Type: Tobacco Use: Vaping Tobacco Type: Amount or Packs/day: How Many Years: Alcohol Use: Yes Frequency: Weekly Quant: 3
== END ==
LOC: PAIN 06:53
PROVIDERS: ATTEND Clinical Nurse Specialist Adult Health
DX: M54.12 Radiculopathy, cervical region (principal); R20.2 Paresthesia of skin; G89.29 Other chronic pain; F11.20 Opioid dependence, uncomplicated; Z88.8 Allergy status to other drugs, medicaments and biological substances; Z79.899 Other long term (current) drug therapy

== ENCOUNTER → 2020-07-26 | Outpatient (CLI) | payer BC ==
[~2020-07-26] VITALS: Ht 160 cm; Wt 68.0 kg
[2020-07-26 08:18] VITALS: BP 147/89
--- NOTE | 2020-07-26 08:25 | NUR ---
Pain Clinic Assessment: 1. History of Osteoarthritis: DENIES History of Rheumatoid Arthritis: DENIES 2. Height: 5 ft. 3 in. 160.0 cm. Weight: 150.0 lb. oz. 68.040 kg. Patient's BMI: 26.6 3. Vital Signs: BP: 147/89 Pulse: 92 Resp: 16 Temp: 02 Sat: 100 ECG Mon: 4. Pain Intensity: 2 5. Fall Risk: Dizziness: N Needs help standing or walking: N Fallen in the last 3 months: N Fall risk comments: 6. Patient on Blood Thinner: None 7. History of Hypertension: N 8. Opioid Therapy greater than 6 weeks: Y Opiate Contract Signed: 10/24/15 9. Risk Assessment Tool Provided: 5-MOD 10. Functional Assessment Tool: 11. Recreational Drug Use: Never Drug Type: Tobacco Use: Vaping Tobacco Type: Amount or Packs/day: How Many Years: Alcohol Use: Yes Frequency: Weekly Quant: 3-4 WINE
--- NOTE | 2020-07-26 11:18 | HPC ---
[facility] [address] [place] [address] PAIN MANAGEMENT CONSULTATION Name: BIANCA HANNAH Room #: REG [facility] Manju.#: [id number] Admission: 07/26/20 Attend Phys: Amelia Adams Discharge: Date of : 81 Report #: [id number] THIS REPORT FOR: cc: Loly Garcia DNP, Mary E. DNP Hocker, Amanda CNS ~ DOC #: [id number] cc: DEVAN Hadley James E. Johnson, DO DATE OF SERVICE: 07/26/2020 CHIEF COMPLAINT: Chronic neck pain and upper extremity pain and paresthesias. HISTORY OF PRESENT ILLNESS: This is a pleasant 34-year-old female who returns to the pain clinic today for renewal of her opioid medications. Today, the patient is reporting a pain score of 2/10, located in her neck and numbness and tingly sensation in her third and fourth fingers of her right hand. The patient reports that since we have seen her last, she has had several times while driving home from work that her fingers have been discolored and had significant numbness and tingly sensation. She has brought a picture with her today of her fingers. She does report that the sensation goes away after several minutes. Normally, she describes her pain as a dull, radiating aching pain with occasional numbness and tingly, especially when she is moving her head or doing computer work and weather changes. Today, she would like refills of her medication and to discuss further decreasing of her opioids. Her goal is to be off opioid medications in the next year or so. We have been slowly decreasing her and she has done quite well adjusting to this decrease in medication. ALLERGIES: No known drug allergies. CURRENT LIST OF MEDICATIONS: Hydrocodone 5/325 p.r.n., Flexeril 10 mg t.i.d. and Vyvanse. PQRS: 1. She denies osteoarthritis or rheumatoid arthritis. 2. Height is 5 feet 3 inches, weight is 150, BMI is 26. 3. VITAL SIGNS: 147/89, pulse is 92, respirations 16, oxygen sat is 100. 4. Pain score is 2/10. 5. Denies dizziness. Does not need help walking or standing, has not fallen in the last 3 months. 6. The patient is not on any blood thinners or medication for hypertension. 7. Opiate therapy is greater than six weeks; therefore, an opioid signed contract is on the chart. Her risk assessment is moderate. Functional assessment is 1370. 8. Recreational drug use, she denies. She does use a vaping form of tobacco use and does occasionally drink wine. [address] [address] PAIN MANAGEMENT CONSULTATION Name: BIANCA HANNAH Room #: REG [facility] Michael#: [id number] Admission: 07/26/20 Attend Phys: Amelia Adams Discharge: Date of : 81 Report #: [id number] According to the prescription monitoring system, the patient is filling appropriately. She is due to fill next week, filling in a timely fashion. Her morphine milliequivalent is 15 or less MMEs. There is a recent drug screen on the chart that is appropriate for her medications as well. PHYSICAL EXAMINATION: GENERAL: This is alert and orientated 34-year-old female who appears her stated age, rating her pain score today at 2/10. She is a good historian. HEENT: Normocephalic, atraumatic. Extraocular eye muscles are intact. Mucous membranes are moist. EXTREMITIES: No clubbing, no cyanosis, no edema. MUSCULOSKELETAL: Cervical provocation testing is met with increasing neck pain, upper extremity strength is symmetrical 5/5 with good sensation. Numbness and tingly sensations followed by C7-T1 dermatomal distribution. IMPRESSION: 1. Cervical radiculopathy. 2. Cervical myalgia. 3. Chronic intractable pain. 4. Opioid medication management under written agreement. We reviewed the fact that opiate medications are being used to provide analgesia adequate to support activities of daily living, not attempting to achieve a specific pain score on the 0-10 Visual Analog Scale. The current opiate medications are providing sufficient analgesia to allow the patient to participate in activities of daily living. The patient is not exhibiting any aberrant behavior suggestive of drug diversion. The patient is not having any adverse reactions to medications. The patient is not suffering from daytime somnolence or mental acuity changes. The patient is managing opiate-induced constipation with appropriate bneg-svz-jldivjj agents and dietary considerations. The patient was counseled on concern for caution with operating a motor vehicle while using opiate medications. A physical exam was performed and the patient's functional status was evaluated. All patients with back pain were advised against the bed rest greater than 4 days and were advised to return to normal activities. Pain score assessment was noted and the treatment plan was reviewed with the patient. All current medications, both prescribed and OTC were reviewed and reconciled on the electronic medical record. Tobacco screening was accomplished and smoking cessation was advised when indicated. BMI was noted and diet/exercise modification was recommended for all patients following outside normal parameters. I reviewed with the patient today [facility] [address] [address] PAIN MANAGEMENT CONSULTATION Name: BIANCA HANNAH Room #: REG [facility] Rodriguez#: [id number] Admission: 07/26/20 Attend Phys: Amelia Adams Discharge: Date of : 81 Report #: [id number] prescription medications, reviewed their responsibility to utilize medications only as prescribed by the physician. They are to seek and receive pain medications only from 1 physician group ( [facility]). They are to use 1 pharmacy and keep the clinic informed if they change pharmacies. Their responsibilities include making followup visits in a timely fashion and to avoid abrupt discontinuation of medication usage. Their responsibilities further include bringing their medications (bottles from the pharmacy with residual pills) to the visit for possible confirmation of pill counts and the patient understands it is their responsibility to submit to random drug screens to ensure both that the medications prescribed are present, and that no other controlled substances are present. All prescriptions provided today were generated electronically. PLAN: 1. We discussed treatment options with the patient today. We have been slowly decreasing patient's medications at her request. She eventually would like to stop all of her opioid medications if she is able. We did discuss that she may need to have some on as needed basis for more severe pain days. Today we will decrease her from 75 tablets to 60 tablets in a month and try this for several months where her body adjusts. Scripts will be sent electronically by Dr. Bud Cline for hydrocodone 5/325, #60 for today, 4 week and 8-week release. 2. I will continue on her Flexeril 10 mg tablets, #90 with 5 additional refills. I did discuss with her splitting this medication in half if she would like to try to wean off this medication as well. 3. We did discuss how she has been having increasing numbness and tingling with discoloration in her hand at times while driving. She has not had an epidural steroid injection since 02/2019. I encouraged her that if this continues to happen more frequently, she can call our office and schedule an epidural with Dr. Bud Cline. She typically has very good benefit from her epidural injections. 4. At this time, she has not received the COVID vaccine. We did discuss finding the place that now offers that since it is widely available. The patient will attempt to do this in the next few weeks. Time spent with the patient in consultation, reviewing recent clinical notes and physician reports, physical examination and correlation of findings and medical documentation to determine possible treatment option 16 minutes. Time spent in preparation for appointment reviewing prescription monitoring reports, reviewing previous records and proposed treatment options and current medications 5 minutes. Time spent preparing and sending electronic prescriptions with Dr. Bud Clnie who is the collaborating physician and documentation of visit and plan of treatment 5 minutes. Total time spent 26 minutes[place] [address] PAIN MANAGEMENT CONSULTATION Name: BIANCA HANNAH [id number] Admission: 07/26/20 Attend Phys: Amelia Adams Discharge: Date of : 81 Report #: [id number] AH/STD <ELECTRONICALLY SIGNED> By: Amelia Adams 07/26/20 1118 0753 0920 Amelia Adams /nt
== END ==
LOC: PAIN 06:56
PROVIDERS: ATTEND Clinical Nurse Specialist Adult Health
DX: M54.16 Radiculopathy, lumbar region (principal); G89.29 Other chronic pain; F11.20 Opioid dependence, uncomplicated; R20.2 Paresthesia of skin

== ENCOUNTER → 2020-11-08 | Outpatient (CLI) | payer BC ==
[~2020-11-08] VITALS: Ht 160 cm; Wt 68.2 kg
[~2020-11-08] MED LIST changes: +WELLBUTRIN XL300 MG PO
[2020-11-08 08:48] VITALS: BP 140/101
--- NOTE | 2020-11-08 09:10 | NUR ---
Pain Clinic Assessment: 1. History of Osteoarthritis: DENIES History of Rheumatoid Arthritis: DENIES 2. Height: 5 ft. 3 in. 160.0 cm. Weight: 150.4 lb. oz. 68.221 kg. Patient's BMI: 26.6 3. Vital Signs: BP: 140/101 Pulse: 115 Resp: 14 Temp: 02 Sat: 100 ECG Mon: 4. Pain Intensity: 1 5. Fall Risk: Dizziness: N Needs help standing or walking: N Fallen in the last 3 months: N Fall risk comments: 6. Patient on Blood Thinner: None 7. History of Hypertension: N 8. Opioid Therapy greater than 6 weeks: Y Opiate Contract Signed: 10/24/15 9. Risk Assessment Tool Provided: 5-MOD 10. Functional Assessment Tool: 11. Recreational Drug Use: Never Drug Type: Tobacco Use: Vaping Tobacco Type: E-Cigarettes Amount or Packs/day: DAILY How Many Years: Alcohol Use: Yes Frequency: Weekly Quant: 3 ON WEEKENDS
--- NOTE | 2020-11-08 13:52 | HPC ---
[facility] [place] [address] PAIN MANAGEMENT CONSULTATION Name: BIANCA HANNAH Room #: REG [facility] Michael#: [id number] Admission: 11/08/20 Attend Phys: Amelia Adams Discharge: Date of : 81 Report #: [id number] THIS REPORT FOR: cc: Loly Garcia DNP, Mary E. DNP Hocker,Amelia JESUS ~ cc: DEVAN Hadley James E. Johnson, DO DATE OF SERVICE: 11/08/2020 CHIEF COMPLAINT: Chronic neck pain, upper extremity pain and paresthesias. HISTORY OF PRESENT ILLNESS: This is a pleasant 34-year-old female who returns to the Pain Clinic for renewal of her opioid medications that she comes for every 2 months. Today, she is reporting a pain score of 1/10, stating her pain is very well controlled with her current regimen of hydrocodone and occasional Flexeril. Her pain is in her neck and does radiate into her arms at times, describing it as an achy sensation. Her pain is usually worse after working on her computer monitor or with weather changes. She has been trying to decrease her opioids slowly and feels that her pain is still well controlled on these lower doses. She does occasionally use Biofreeze and heat to her neck as well. The patient reports that she recently had the first COVID vaccine and is scheduled next week to have her second epidural injection. The patient also reports starting Wellbutrin 300 mg XL since we last saw her and feels this medication is beneficial at this higher dose for her. ALLERGIES: No known drug allergies. CURRENT LIST OF MEDICATIONS: Hydrocodone 5/325 b.i.d. p.r.n., Flexeril 10 mg at bedtime, Vyvanse, Wellbutrin 300 mg daily. PQRS: 1. She denies any osteoarthritis or rheumatoid arthritis. Height is 5 feet 3 inches, weight is 150, BMI is 26. 2. Vital signs: 140/101, pulse is 115, respirations 14, oxygen sat is 100. Pain score is 1/10. Fall risk, denies dizziness, does not need help walking or standing, has not fallen in the last 3 months. 3. The patient is not on any blood thinners or medication for hypertension. 4. Opioid therapy is greater than 6 weeks; therefore, an opioid signed contract is on the chart. 5. Risk assessment is moderate. Functional assessment: . 6. Recreational drug use, she denies. She does vape E-cigarettes and occasionally drinks alcohol. According to the prescription monitoring system, the patient is filling appropriately in a timely fashion. She is due next week to fill her opioid [address] [address] PAIN MANAGEMENT CONSULTATION Name: BIANCA HANNAH Room #: REG [facility] Rodriguez#: [id number] Admission: 11/08/20 Attend Phys: Amelia Adams Discharge: Date of : 81 Report #: [id number] medications. Her MME is 10 morphine mEq a day, well below the recommended guidelines. There is a urine drug screen on the chart and we will collect another random screen at her next appointment. PHYSICAL EXAMINATION: GENERAL: This is alert and orientated, very pleasant, well-developed, well-nourished 34-year-old female who appears her stated age, rating her pain score today at 1/10. HEENT: Normocephalic, atraumatic. Pupils equal, round and reactive to light. She is wearing a mask. EXTREMITIES: No clubbing, no cyanosis, no edema. MUSCULOSKELETAL: Lower extremity strength is symmetrical at 5/5 and intact to light touch, upper extremity strength is symmetrical as well as muscle bulk and tone. Pain is elicited with cervical provocation testing with extension, rotation, and lateral flexion. ASSESSMENT: 1. Cervical radiculopathy. 2. Cervicalgia. 3. Myofascial pain of the cervical spine. 4. Opioid dependency. 5. Chronic intractable pain. 6. Complex medical management utilizing scheduled opioid medications. PLAN: We discussed treatment options with the patient today. The patient finds her hydrocodone beneficial in controlling her pain utilizing 1-2 tablets a day depending on the stress level and computer work that is involved throughout her job on a daily basis. We will continue her on this medication, having Dr. Bud Cline send electronically 60 tablets for today and 4-week release. 1. The patient does take the Flexeril on an as-needed basis to help with her tension in her cervical spine region and finds this beneficial. No scripts needed today. 2. The patient's blood pressure is quite elevated today at 140/101. We did discuss that it has been slowly increasing the last 6 months. I did encourage her to take her blood pressure at home and if it continues to be elevated in the range of at least 140s over 90s, to contact her primary care doctor. We also discussed that nicotine in the vaping that she uses causes this vasoconstriction. I encouraged her to try to decrease her vaping use. This may in turn also help with her pain control. The patient verbalized understanding and does have a blood pressure cuff at home. We will continue to monitor. 3. The patient will return in 2 months. Time spent with the patient in consultation, reviewing recent clinical notes and physician reports, physical examination and correlation of findings and medical documentation to determine possible treatment options, 16 minutes. [facility] [address] [place] [address] PAIN MANAGEMENT CONSULTATION Name: CAMDENBIANCA nAnel Room #: REG [facility] Rodriguez#: [id number] Admission: 11/08/20 Attend Phys: Amelia Adams Discharge: Date of : 81 Report #: [id number] Time spent preparing for appointment, reviewing prescription monitoring reports, reviewing previous records and proposed treatment options and current medications, 5 minutes. Time spent preparing and sending electronic prescriptions with Dr. Bud Cline, who is the collaborating physician, and documentation of visit and plan of treatment, 5 minutes. Total time spent, 26 minutes. <ELECTRONICALLY SIGNED> By: Amelia Adams 11/08/20 1352 0903 1213 Amelia Adams /nt
== END ==
LOC: PAIN 06:49
PROVIDERS: ATTEND Clinical Nurse Specialist Adult Health
DX: M54.12 Radiculopathy, cervical region (principal); M79.10 Myalgia, unspecified site; G89.4 Chronic pain syndrome; Z79.891 Long term (current) use of opiate analgesic; Z79.899 Other long term (current) drug therapy

== ENCOUNTER → 2021-02-21 | Outpatient (CLI) | payer BC ==
[~2021-02-21] VITALS: Ht 160 cm; Wt 67.6 kg
[2021-02-21 09:51] VITALS: BP 137/97
--- NOTE | 2021-02-21 09:58 | NUR ---
Pain Clinic Assessment: 1. History of Osteoarthritis: DENIES History of Rheumatoid Arthritis: DENIES 2. Height: 5 ft. 3 in. 160.0 cm. Weight: 149.0 lb. oz. 67.586 kg. Patient's BMI: 26.4 3. Vital Signs: BP: 137/97 Pulse: 112 Resp: 14 Temp: 02 Sat: 99 ECG Mon: 4. Pain Intensity: 1 5. Fall Risk: Dizziness: N Needs help standing or walking: N Fallen in the last 3 months: N Fall risk comments: 6. Patient on Blood Thinner: None 7. History of Hypertension: N 8. Opioid Therapy greater than 6 weeks: Y Opiate Contract Signed: 10/24/15 9. Risk Assessment Tool Provided: 5-MOD 10. Functional Assessment Tool: 11. Recreational Drug Use: Never Drug Type: Tobacco Use: Vaping Tobacco Type: Amount or Packs/day: How Many Years: Alcohol Use: Yes Frequency: Quant:
--- NOTE | 2021-02-22 13:57 | HPC ---
[facility] [address] [address] PAIN MANAGEMENT CONSULTATION Name: BIANCA HANNAH Room #: REG [facility].#: [id number] Admission: 02/21/21 Attend Phys: Amelia Adams Discharge: Date of : 81 Report #: [id number] THIS REPORT FOR: cc: Loly Garcia DNP, Mary E. DNP Hocker,Amelia JESUS ~ cc: Bud Cline DO, Mary Ryan, DEVAN DATE OF SERVICE: 02/21/2021 CHIEF COMPLAINT: Chronic neck pain, upper extremity pain and paresthesias. HISTORY OF PRESENT ILLNESS: As you know, this is a very pleasant 35-year-old female who continues to have some ongoing cervical issues, have slowly been improving with a job change. Today, she is reporting a pain score of 1/10, most of her pain is located in her occipital area of her head. She describes this pain as an aching, radiating discomfort. Her pain is typically worse with working on the computer monitor or with weather changes. She is thankful that she was able to change jobs earlier this year and since that job change, she has been able to have less pain. She also reports that she has been able to decrease her medications, which we have been trying to do over the last few months. Today, she reports taking pain pills one to two tablets a day and has even decreased her Flexeril used to typically 1 tablet a day. Today, she is reporting a pain score of 1/10. Denies any somnolence or constipation issues with her medication regimen. ALLERGIES: No known drug allergies. CURRENT LIST OF MEDICATIONS: Flexeril 10 mg p.r.n., hydrocodone 5/325 p.r.n., bupropion and Vyvanse. PQRS: 1. She denies any osteoarthritis or rheumatoid arthritis. 2. Height is 5 feet 3 inches, weight is 149. BMI is 26. 3. Vital signs: BP 37/97, pulse is 112, respirations 14, oxygen sat is 99%. 4. Pain score is /10. 5. Denies dizziness, does not need help walking or standing, has not fallen in the last 3 months. 6. The patient is not on any blood thinners or medications for hypertension. 7. Opioid therapy is greater than 6 weeks; therefore, an opioid signed contract is on the chart. 8. Risk assessment is moderate. 9. Functional assessment . 10. Recreational drug use, she denies. She does bathe every day and occasionally drinks alcohol. According to the prescription monitoring system, [place] [address] PAIN MANAGEMENT CONSULTATION Name: BIANCA HANNAH Room #: REG [facility] Rodriguez#: [id number] Admission: 02/21/21 Attend Phys: Amelia Adams Discharge: Date of : 81 Report #: [id number] appropriately in a timely fashion. She has been able to go slightly longer in between refills due to decreasing her medications. Her morphine mEq 5-10 MME per day. There is a drug screen that will be repeated next visit with her. PHYSICAL EXAMINATION: GENERAL: This is alert and orientated, very pleasant, well-developed, well-nourished 35-year-old female who reports her pain score 1/10 today. She is a good historian. HEENT: Normocephalic, atraumatic. Extraocular eye muscles are intact. She is wearing a mask for COVID precautions. NECK: Without adenopathy or JVD. MUSCULOSKELETAL: She has tenderness in occipital areas bilaterally, but greater on the right than the left. No radicular symptoms in her arms noted today. Pain is elicited with cervical provocation testing with extension, rotation, and lateral flexion. ASSESSMENT: 1. Cervical radiculopathy. 2. Cervical myalgia. 3. Myofascial pain in the cervical region. 4. Opioid dependency. 5. Chronic intractable pain. 6. Complex medical management utilizing scheduled opioid medications. We reviewed the fact that opiate medications are being used to provide analgesia adequate to support activities of daily living, not attempting to achieve a specific pain score on the 0-10 Visual Analog Scale. The current opiate medications are providing sufficient analgesia to allow the patient to participate in activities of daily living. The patient is not exhibiting any aberrant behavior suggestive of drug diversion. The patient is not having any adverse reactions to medications. The patient is not suffering from daytime somnolence or mental acuity changes. The patient is managing opiate-induced constipation with appropriate qvau-ffy-kicyujd agents and dietary considerations. The patient was counseled on concern for caution with operating a motor vehicle while using opiate medications. PLAN: 1. We discussed treatment options with the patient today. The patient reports that she is doing quite well in regard to pain that she has switched jobs. She has been able to decrease her medications and we discussed decreasing it further today. The patient ultimate goal is to wean off the opioids if she is able. Therefore, today, we will decrease her medications from 60 tablets every month to 45. We will continue her hydrocodone 5/325 strength. Scripts will be sent electronically for today and 8-week supply. We will re-evaluate how she is doing in the next 3 months. If we are able to taper her again we will do so to 30 tablets per month. [address] [address] PAIN MANAGEMENT CONSULTATION Name: BIANCA HANNAH Room #: REG [facility].#: [id number] Admission: 02/21/21 Attend Phys: Amelia Adams Discharge: Date of : 81 Report #: [id number] 2. We will continue her on Flexeril 10 mg tablets, #90 with 5 additional refills. The patient does take these on average 2 times a day. 3. We did discuss her hypertension again today. The patient has been taking this at home where it is slightly decreased, but still continues to be on the higher level of normal. I encouraged her to discuss this again with her primary care physician. Time spent with the patient in consultation, reviewing recent clinical notes and physician reports, physical examination and correlation of findings and medical documentation to determine possible treatment options 16 minutes. Time spent preparing for appointment, reviewing prescription monitoring reports, reviewing previous records and proposed treatment options and current medications, 5 minutes. Time spent preparing and sending electronic prescriptions with Dr. Bud Cline who is the collaborating physician, documentation of visit and plan of treatment 5 minutes. Total time spent 26 minutes. <ELECTRONICALLY SIGNED> By: Amelia Adams 02/22/21 1357 1323 2247 Amelia Adams /nt
== END ==
LOC: PAIN 07:00
PROVIDERS: ATTEND Clinical Nurse Specialist Adult Health
DX: M54.12 Radiculopathy, cervical region (principal); M79.18 Myalgia, other site; M79.609 Pain in unspecified limb; F11.20 Opioid dependence, uncomplicated; Z79.899 Other long term (current) drug therapy